=== PATIENT | male | born 1975 | race Caucasian/White ===

== ENCOUNTER 2024-06-20 20:47 | Emergency (ER) | payer MEDICAID, SELFPAY ==
--- NOTE | ~2024-06-20 | CT_ITS ---
EXAMINATION: CT ABDOMEN AND PELVIS WITHOUT CONTRAST CLINICAL INFORMATION: Flank pain. COMPARISON: None available. TECHNIQUE: Multidetector volumetric imaging was performed from the superior aspect of the liver through the pubic symphysis. Sagittal and coronal reformatted images were obtained on the technologist's workstation. This CT examination was performed using dose optimization techniques as appropriate, variously including the following: *Automated exposure control *Adjustment of mA and/or kV according to patient size (this includes techniques or standardized protocols for targeted exams where dose is matched to indication/reason for exam; i.e. extremities or head) *Use of iterative reconstruction technique DLP: 636 mGy-cm FINDINGS: LUNG BASES: The visualized lung bases are unremarkable. LIVER, GALLBLADDER, AND BILIARY TREE: The liver is normal in size, shape, and attenuation. No focal hepatic lesion or biliary ductal dilatation is present. The gallbladder is unremarkable with no evidence of radiopaque gallstones, gallbladder wall thickening, or obvious pericholecystic inflammatory changes. PANCREAS: Unremarkable. SPLEEN: Unremarkable. ADRENAL GLANDS: There is a 1.1 cm low-density left adrenal nodule. KIDNEYS AND URETERS: The kidneys are normal in size, shape, and attenuation. No hydronephrosis, hydroureter, or calculi seen. No perinephric stranding. There is a 2.6 cm cyst mid to upper pole left kidney. There is a 1.9 cm cyst mid pole right kidney. BLADDER: Unremarkable. GASTROINTESTINAL TRACT: The small and large bowel are unremarkable. The appendix is not seen. ABDOMINAL WALL: There is a small umbilical hernia containing fat. LYMPH NODES: Normal. VASCULAR: Unremarkable. PELVIC VISCERA: Unremarkable. OSSEOUS STRUCTURES: Unremarkable. CT/CT abdomen pelvis wo IV con IMPRESSION: No stone or hydronephrosis seen. Bilateral renal cysts. 1.1 cm low-density left adrenal nodule probably representing an adenoma. Fleischner guidelines were followed. Electronically signed by: Ata Waterman MD 06/21/2024 03:41 AM EST
[2024-06-20 20:49] VITALS: BP 132/93; PULSE 100; RESP 15; TEMP 36.3; O2SAT 97; BMI 28.9
[2024-06-20 21:13] LABS: MANUAL DIFF FLAG NO
[2024-06-20 21:14] LABS: Appearance Urine Clear; Basophils Absolute Auto 0.1 X10*3/uL (0.0-0.2); Basophils Percent Auto 0.4 % (0-2); Color Urine Yellow; Eosinophils Percent Auto 0.2 % (0-4); Glucose Urine UA Negative (Negative); Hematocrit 48.7 % (42.0-52.0); Hemoglobin 16.5 g/dl (14.0-18.0); Imm Gran Abs Auto 0.05 X10*3/uL (0.00-0.03); Imm Gran Pct Auto 0.4 % (0.0-0.4); Leukocyte Esterase Urine Negative (Negative); Lymphocytes Absolute Auto 2.7 X10*3/uL (1.2-4.9); Lymphocytes Percent Auto 22.4 % (20-40); Mean Corpuscular HGB Conc 33.9 g/dl (31.0-36.0); Mean Corpuscular Hemoglobin 29.3 pg (27.0-33.0); Mean Corpuscular Volume 86.3 fL (80.0-98.0); Mean Platelet Volume 8.8 fL (9.4-12.4); Monocytes Absolute Auto 1.2 X10*3/uL (0.1-1.2); Monocytes Percent Auto 9.5 % (2-11); Neutrophils Absolute Auto 8.2 x10*3/uL (2.0-8.3); Neutrophils Percent Auto 67.1 % (45-73); Nitrite Urine Negative (Negative); PH 5.5 (5.0-9.0); Platelet Count 375 X10*3/uL (160-400); Red Blood Count 5.64 X10*6/uL (4.60-5.80); Specific Gravity - Urine >= 1.030 (1.005-1.025); UMIC TRIGGER UACC YES; Urine Blood Moderate (2+) (Negative); Urine Ketones Trace mg/dL (Negative); Urine Protein 30 (1+) mg/dL (Neg-Trace); White Blood Count 12.2 X10*3/uL (4.8-10.8)
[2024-06-20 21:17] LABS: Bacteria Urine None Seen (None Seen); Squamous Epithelial Cell Urine 0-2 /HPF (0-2); WBC Urine 0-5 /HPF (0-5)
[2024-06-20 21:29] LABS: Alanine Aminotransferase 70 U/L (0-40); Albumin Level 4.7 g/dL (3.5-5.0); Alkaline Phosphatase 60 U/L (39-117); Anion Gap 13 (12-20); Aspartate Amino Transferase 87 U/L (5-37); Bilirubin Total 0.8 mg/dL (0.0-1.0); Blood Urea Nitrogen 18 mg/dL (9-16); Calcium 10.1 mg/dL (8.4-10.2); Carbon Dioxide 23 mmol/L (22-29); Chloride 109 mmol/L (96-108); Creatinine Clr Calc Pharmacy 86.3; Estimated Glomerular Filt Rate 59; Glucose Random 100 mg/dL (60-115); Potassium 4.1 mmol/L (3.3-5.1); Sodium 141 mmol/L (135-145); Total Protein 7.9 g/dL (6.5-8.0)
[2024-06-21 03:08] VITALS: BP 131/84; PULSE 78; RESP 16; TEMP 36.3; O2SAT 97
--- NOTE | 2024-06-21 04:22 | ED_ITS ---
HPI - Male Genitourinary General Chief complaint: Urogenital-Male Stated complaint: bloody urine Time Seen by Provider: 06/21/24 04:10 Source: patient Mode of arrival: ambulatory Limitations: no limitations History of Present Illness ED Provider: Dr. Veronica Villalobos HPI Narrative: Patient comes to the emergency room complaining of hematuria, dysuria, frequency for 1 day. Patient denies fever or chills. Patient states that earlier today he had bilateral lower flank pain intermittently for the last 3 days. Related Data Previous Rx's ?Medication ?Instructions ?Recorded phenazopyridine 100 mg tablet 100 mg PO TID #6 tabs 06/21/24 Allergies Allergy/AdvReac Type Severity Reaction Status Date / Time No Known Allergies Allergy Mild NOT Verified 06/20/24 20:52 APPLICABLE Review of Systems 2 Review of Systems: Constitutional : No Weight loss, No Fever, No Chills, No Night Sweats, No Fatigue, No Malaise ENT/Mouth : No Hearing loss, No Ear Pain, No Nasal Congestion, No Sinus Pain, No Hoarseness, No sore throat, No Rhinorrhea, No Swallowing Difficulty Eyes: No Eye Pain, No Swelling, No Redness, No Foreign Body, No Discharge, No Vision Changes Cardiovascular : No Chest Pain, No SOB, No Dyspnea on Exertion, No Orthopnea, No Edema, No Palpitations Respiratory : No Cough, No Sputum, No Wheezing, No Smoke Exposure, No Dyspnea Gastrointestinal : No Nausea, No Vomiting, No Diarrhea, No Constipation, No abdominal Pain, No Hematochezia, No Melena Genitourinary : complaining of dysuria, hematuria, frequency and urgency, complaining of bilateral flank pain which self-resolved Musculoskeletal : No joint pain, No Myalgias, No Joint Swelling Skin : No Skin Lesions, No rash Neuro : No Weakness, No Numbness, No Paresthesias, No Loss of Consciousness, No Dizziness, No Headache Psych : No Anxiety/Panic, No Depression, No SI/HI/AH/VH, No Social Issues, Heme/Lymph: No Bruising, No Bleeding,No Lymphadenopathy Endocrine : No Polyuria, No Polydipsia, No Temperature Intolerance PMFSH Social History Social History Smoked in Last 30 Days: Yes Use of substances other than those prescribed or required for medical reasons: No Substance Use Type: Crack/Cocaine Advance Directives: No Advance Directives Information Provided: Yes Do you have a plan to hurt others: No Plan Physical Exam 2 Vital Signs: Vital Signs: Last Vital Signs Temp 97.4 F 06/21/24 03:08 Pulse 78 06/21/24 03:08 Resp 16 06/21/24 03:08 BP 131/84 06/21/24 03:08 Pulse Ox 97 06/21/24 03:08 O2 Del Method Room Air 06/21/24 03:08 BMI result Body Mass Index 28.9 Const: Other: Appearance: Alert. Oriented X3. No acute distress. well-appearing Eyes: Pupils equal, round and reactive to light. ENT: Pharynx normal. Neck: Normal inspection. Neck supple. No lymph nodes noted. No crepitus CVS: Normal heart rate and rhythm. Pulses normal. Normal S1 and S2 Respiratory: No respiratory distress. Breath sounds normal. No Wheezing. No rales Abdomen: Soft and nontender. No rigidity. No distention. Skin: Skin warm and dry. Normal skin color. Normal skin turgor. Extremities: No lower extremity edema. No Lacerations. No Rash Neuro: Oriented X 3. No motor deficit. No sensory deficit. Moving all extremities. No slurred speech. CN 2 through 12 grossly intact Psych: calm, cooperative, normal affect Medical Decision Making Medical Decision Making [facility] Narrative: my interpretation of labs: Patient has a white blood cell count of 12, likely reactive leukocytosis, chemistry within normal limits, urinalysis positive for blood urine positive for blood, negative for nitrites leukocyte esterase and bacteria - CT scan shows bilateral cysts in the kidney , no kidney stones - reviewing patient's urine analysis from the past, patient had trace blood in the urine. - patient was given phenazopyridine in the emergency room. antibiotic is not indicated at this time. - I discussed with the patient that will likely need urology follow-up, possibly a cystoscopy. At this time, patient is not having any pain. Given patient's symptoms, it is possible that patient may have passed a kidney stone Differential Diagnosis Differential Diagnoses: The differential diagnosis associated with the presentation includes ( as above) Lab Data [facility] Lab Attestation statement: I reviewed the patient's lab results. 06/20/24 21:07 06/20/24 21:07 Labs: Lab Results 06/20/24 Range/Units 21:07 WBC 12.2 H (4.8-10.8) X10*3/uL RBC 5.64 (4.60-5.80) X10*6/uL Hgb 16.5 (14.0-18.0) g/dl Hct 48.7 (42.0-52.0) % MCV 86.3 (80.0-98.0) fL MCH 29.3 (27.0-33.0) pg MCHC 33.9 (31.0-36.0) g/dl RDW 13.0 (11.0-16.0) % Plt Count 375 (160-400) X10*3/uL MPV 8.8 L (9.4-12.4) fL Immature Gran % (Auto) 0.4 (0.0-0.4) % Neut % (Auto) 67.1 (45-73) % Lymph % (Auto) 22.4 (20-40) % [place] % (Auto) 9.5 (2-11) % Eos % (Auto) 0.2 (0-4) % Baso % (Auto) 0.4 (0-2) % Lymph # (Auto) 2.7 (1.2-4.9) X10*3/uL [place] # (Auto) 1.2 (0.1-1.2) X10*3/uL Eos # (Auto) 0.0 (0.0-0.4) X10*3/uL Baso # (Auto) 0.1 (0.0-0.2) X10*3/uL Abs Immat Gran (auto) 0.05 H (0.00-0.03) X10*3/uL Absolute Neuts (auto) 8.2 (2.0-8.3) x10*3/uL Absolute Nucleated RBC 0.000 (0.0-0.012) X10*3/uL Nucleated RBC % (auto) 0.0 (0.0-0.2) /100WBC Sodium 141 (135-145) mmol/L Potassium 4.1 (3.3-5.1) mmol/L Chloride 109 H (96-108) mmol/L Carbon Dioxide 23 (22-29) mmol/L Anion Gap 13 (12-20) BUN 18 H (9-16) mg/dL Creatinine 1.31 (0.5-1.4) mg/dL Estim Creat Clear Calc 86.3 Estimated GFR 59 Random Glucose 100 (60-115) mg/dL Calcium 10.1 (8.4-10.2) mg/dL Total Bilirubin 0.8 (0.0-1.0) mg/dL AST 87 H (5-37) U/L ALT 70 H (0-40) U/L Alkaline Phosphatase 60 (39-117) U/L Total Protein 7.9 (6.5-8.0) g/dL Albumin 4.7 (3.5-5.0) g/dL Urine Color Yellow Urine Appearance Clear Urine pH 5.5 (5.0-9.0) Ur Specific [place] >= 1.030 H (1.005-1.025) Urine Protein 30 (1+) H (Neg-Trace) mg/dL Urine Glucose (UA) Negative (Negative) mg/dL Urine Ketones Trace (Negative) mg/dL Urine Blood Moderate (2+) H (Negative) Urine Nitrite Negative (Negative) Ur Leukocyte Esterase Negative (Negative) Urine RBC 6-10 H (0-2) /HPF Urine WBC 0-5 (0-5) /HPF Ur Squamous Epith Cells 0-2 (0-2) /HPF Urine Bacteria None Seen (None Seen) Hyaline Casts 3-5 (0-2) /LPF Independent Interpretation I performed an independent interpretation of an: CT Scan Radiology Impression Discussion of test interpretation with radiology: I have reviewed the radiologist's reading. Radiologist Impression: FINDINGS: LUNG BASES: The visualized lung bases are unremarkable. LIVER, GALLBLADDER, AND BILIARY TREE: The liver is normal in size, shape, and attenuation. No focal hepatic lesion or biliary ductal dilatation is present. The gallbladder is unremarkable with no evidence of radiopaque gallstones, gallbladder wall thickening, or obvious pericholecystic inflammatory changes. PANCREAS: Unremarkable. SPLEEN: Unremarkable. ADRENAL GLANDS: There is a 1.1 cm low-density left adrenal nodule. KIDNEYS AND URETERS: The kidneys are normal in size, shape, and attenuation. No hydronephrosis, hydroureter, or calculi seen. No perinephric stranding. There is a 2.6 cm cyst mid to upper pole left kidney. There is a 1.9 cm cyst mid pole right kidney. BLADDER: Unremarkable. GASTROINTESTINAL TRACT: The small and large bowel are unremarkable. The appendix is not seen. ABDOMINAL WALL: There is a small umbilical hernia containing fat. LYMPH NODES: Normal. VASCULAR: Unremarkable. PELVIC VISCERA: Unremarkable. OSSEOUS STRUCTURES: Unremarkable. CT/CT abdomen pelvis wo IV con IMPRESSION: No stone or hydronephrosis seen. Bilateral renal cysts. 1.1 cm low-density left adrenal nodule probably representing an adenoma. Fleischner guidelines were followed. Discharge Plan Discharge Clinical Impression: Hematuria Patient Disposition: Home, Self-Care Instructions: Hematuria (ED) Additional Instructions: Please follow-up with your primary care physician tomorrow. If you have any worsening or new symptoms, please return to the emergency room or call 911 Prescriptions: New phenazopyridine 100 mg tablet 100 mg PO TID Qty: 6 0RF Referrals: Chino Funes MD [Physician] - 1 week Print Language: [place] Islander
[2024-06-21] MEDS: Phenazopyridine HCL 100 MG TABLET PO (04:35)
[2024-06-21 04:36] VITALS: BP 129/82; PULSE 100; RESP 20; TEMP 36.4; O2SAT 96
[2024-06-21 04:38] VITALS: BP 129/82; PULSE 100; RESP 20; TEMP 36.4; O2SAT 96
== END 2024-06-21 04:41 | disposition home or self-care (01) ==
PROVIDERS: Emergency Provider Emergency Medicine
DX: R31.9 Hematuria, unspecified (principal); R30.0 Dysuria; R35.0 Frequency of micturition; R10.2 Pelvic and perineal pain; Z79.899 Other long term (current) drug therapy
CPT/HCPCS: 36415; 74176; 80053; 81001; 85025; 99284

== ENCOUNTER 2024-08-15 11:00 | Outpatient (REF) | payer MEDICAID, SELFPAY ==
[2024-08-15 16:57] LABS: Urine Cytology See Pathology rpt
--- OUTSIDE RECORDS SUMMARY | 2024-08-15 20:05 | XMS_ITS | Clinical Summary ---
Author Organization 175 [facility] Address [address] [place] [address] Phone Care Team Providers Care Asthma Educator Name Role Phone Jayashree Stevenson NP Primary Care Provider [phone]- [phone] Active Problems Problem Noted Date Diagnosed Date Cervicalgia 06/06/2024 Lumbar radiculopathy 06/06/2024 Encounters Date Type Department Care Team Description 07/06/2024 11:30 AM EST Treatment [facility] [address] [phone] Tabatha, Cari, PT Cervicalgia (Primary Dx); Lumbar radiculopathy 07/04/2024 12:30 PM EST Treatment [facility] [address] [phone] Dante Virgen, PATENT PARALEGAL Cervicalgia (Primary Dx); Lumbar radiculopathy 06/29/2024 12:30 PM EST Treatment [facility] [address] [phone] [place], Cari, PT Cervicalgia (Primary Dx); Lumbar radiculopathy 06/27/2024 12:30 PM EST Treatment [facility] [address] [phone] Tabatha, Cari, PT Cervicalgia (Primary Dx); Lumbar radiculopathy 06/15/2024 12:30 PM EST Treatment [address] [address] Arturo Hinson, PATENT PARALEGAL Cervicalgia (Primary Dx) 06/13/2024 1:30 PM EST Treatment [address] [address] Arturo Hinson, PATENT PARALEGAL Cervicalgia (Primary Dx) 06/08/2024 12:30 PM EST Treatment [address] [address] Arturo Hinson, PATENT PARALEGAL Cervicalgia (Primary Dx) 06/06/2024 12:30 PM EST Treatment [address] [address] Cari Mays, PT Cervicalgia (Primary Dx); Lumbar radiculopathy 06/03/2024 1:00 PM EST Evaluation [address] [address] Cari Mays, PT Cervicalgia (Primary Dx); Lumbar radiculopathy 06/03/2024 Plan of Care Documentation [address] [address] from Last 3 Months Social History Tobacco [...] weeks General No Cari Mays, PT Note: Public Relations Officer Goals 1. Patient will be independent with [...] to no pain or limitation. Care Teams Asthma Educator Relationship Specialty Start Date End Date Jayashree Stevenson NP PCP - General Family Medicine 06/02/24
== END 2024-08-15 11:01 | disposition home or self-care (01) ==
LOC: HO.LNP 11:00
PROVIDERS: Visit Provider Nurse Practitioner Family
DX: R31.0 Gross hematuria (principal)
CPT/HCPCS: 88112

== ENCOUNTER 2024-08-15 11:06 | Outpatient (REF) | payer MEDICAID, SELFPAY ==
--- OUTSIDE RECORDS SUMMARY | 2024-08-15 16:32 | XMS_ITS | Clinical Summary ---
Author Organization [employer] Address 75 [facility] 7t [place] [address] Care Team Providers Care Supervisor Case Loading Name Role Phone Unavailable Primary Care Provider Unavailabl e Active Problems Problem Noted Date Diagnosed Date Opioid dependence 06/23/2019 Immunizations Name Administration Dates Next Due Tdap 11/30/2018 Social History Tobacco Use Types Packs/Day Years Used Date Smoking Tobacco: Never Assessed Sex and Gender Information Value Date Recorded Sex Assigned at Male 05/19/2022 10:20 AM EDT Legal Sex Male 10:20 AM EDT Gender Identity Male 05/19/2022 10:20 AM EDT Sexual Orientation Straight 05/19/2022 10 :20 AM EDT Last Filed Vital Signs Vital Sign Reading Time Taken Comments Blood Pressure 114/72 12/24/2020 12:06 AM EDT Pulse 86 12/24/2020 12:06 AM EDT Temperature - - Respiratory Rate - - Oxygen Saturation - - Inhaled Oxygen Concentration - - Weight 90.1 kg (198 lb 9.6 oz) 12/24/2020 12:06 AM EDT Height 186 cm (6' 1.23 ) 12/24/2020 12:06 AM EDT Body Mass Index 26.04 12/24/2020 12:06 AM EDT Plan of Treatment Health Maintenance Due Date Last Done Comments CT Colonography 1976 Colonoscopy 1976 Colorectal Cancer Screening 1976 Depression Screening 1976 FIT DNA/Cologuard 1976 FIT 1976 FOBT 1976 HIV Screening 1976 SDOH Screening 1976 Sigmoidoscopy 1976 Alcohol/Substance Use Screening 1988 Tobacco Screening 1988 Family Planning (PISQ) 1991 Hepatitis C Screening 1994 Hepatitis B Vaccines (1 of 3 - 19+ 3-dose series) 1995 COVID-19 Vaccine ( - 2023-2 5 season) 2024 Influenza Vaccine (#1) 2024 Lipid Panel 12/24/2025 12/24/2020 Zoster Vaccines (1 of 2) 2026 DTaP/Tdap/Td Vaccines (2 - T d or Tdap) 11/30/2028 11/30/2018 RSV Patients and Pa tients Aged 60 years or older (1 - 1-dose 75+ series) 2051 HIB Vaccines Aged Out No longer eligi ble based on patient's age to complete this topic HPV Vaccines Aged Out No longer eligi ble based on patient's age to complete this topic Hepatitis A Vaccines Aged Out No long er eligible based on patient's age to complete this topic IPV Vaccines Aged Out No longer eligi ble based on patient's age to complete this topic Meningococcal Vaccine Aged Out No kiara lakisha eligible based on patient's age to complete this topic Pneumococcal Vaccine: Pediat rics (0 to 5 Years) and At-Risk Patients (6 to 64 Years) Aged Out No longer eligi ble based on patient's age to complete this topic RSV under 20 months Aged Out No longe r eligible based on patient's age to complete this topic Rotavirus Vaccines Aged Out No longer eligible based on patient's age to complete this topic Procedures Procedure Name Priority Date/Time Associated Diagnosis Comments LIPID PANEL, STANDARD Routine 12/24/2020 9:48 AM EDT from Last 3 Months or Most Recently Relevant to Health Maintenance Results * (ABNORMAL) LIPID PANEL, STANDARD (12/24/2020 9:48 AM EDT) Chol/HDLC Ratio 3.9 <5.0 (calc) [facility] Cholesterol, Total 168 <200 mg/dL [facility] HDL Cholesterol 43 > OR = 40 mg/dL [facility] LDL Cholesterol 99 mg/dL (calc) [facility] Comment: Reference range: <100 ?? Desirable range <100 mg/dL for primary prevention; ?? <70 mg/dL for patients with CHD or diabetic patients ?? with > or = 2 CHD risk factors. ?? LDL-C is now calculated using the Esteban-Jenkins ?? calculation, which is a validated novel method providing ?? better accuracy than the Friedewald equation in the ?? estimation of LDL-C. ?? Esteban GUTHRIE et al. CORKY. 2013;310(19): 9296-2996 ?? (http://XGraph.MeriTaleem/faq/MRV571) Non-HDL Cholesterol 125 <130 mg/dL (calc) [facility] Comment: For patients with diabetes plus 1 major ASCVD risk ?? factor, treating to a non-HDL-C goal of <100 mg/dL ?? (LDL-C of <70 mg/dL) is considered a therapeutic ?? option. Triglycerides 154(H) <150 mg/dL [facility] 12/24/2020 9:48 AM EDT us Jf Salamanca MD LAB BLOOD ORDERABLES Final R esult [facility] [address] from Last 3 Months or Most Recently Relevant to Health Maintenance Insurance [facility] C3
--- OUTSIDE RECORDS SUMMARY | 2024-08-15 16:32 | XMS_ITS | Clinical Summary ---
Author Organization 175 [facility] Address [address] [place] [address] Phone Care Team Providers Care E Merchant Name Role Phone Jayashree Stevenson NP Primary Care Provider [phone]- [phone] Active Problems Problem Noted Date Diagnosed Date Cervicalgia 06/06/2024 Lumbar radiculopathy 06/06/2024 Encounters Date Type Department Care Team Description 07/06/2024 11:30 AM EST Treatment [facility] [address] [phone] Tabatha, Cari, PT Cervicalgia (Primary Dx); Lumbar radiculopathy 07/04/2024 12:30 PM EST Treatment [facility] [address] [phone] Dante Virgen, TRACK RIDER Cervicalgia (Primary Dx); Lumbar radiculopathy 06/29/2024 12:30 PM EST Treatment [facility] [address] [phone] [place], Cari, PT Cervicalgia (Primary Dx); Lumbar radiculopathy 06/27/2024 12:30 PM EST Treatment [facility] [address] [phone] Tabatha, Cari, PT Cervicalgia (Primary Dx); Lumbar radiculopathy 06/15/2024 12:30 PM EST Treatment [address] [address] Arturo Hinson, TRACK RIDER Cervicalgia (Primary Dx) 06/13/2024 1:30 PM EST Treatment [address] [address] Arturo Hinson, TRACK RIDER Cervicalgia (Primary Dx) 06/08/2024 12:30 PM EST Treatment [address] [address] Arturo Hinson, TRACK RIDER Cervicalgia (Primary Dx) 06/06/2024 12:30 PM EST Treatment [address] [address] Cari Mays, PT Cervicalgia (Primary Dx); Lumbar radiculopathy 06/03/2024 1:00 PM EST Evaluation [address] [address] Cari Mays, PT Cervicalgia (Primary Dx); Lumbar radiculopathy 06/03/2024 Plan of Care Documentation [address] [address] from Last 3 Months Social History Tobacco [...] weeks General No Cari Mays, PT Note: Household Appliance Assembler Goals 1. Patient will be independent with [...] to no pain or limitation. Care Teams E Merchant Relationship Specialty Start Date End Date Jayashree Stevenson NP PCP - General Family Medicine 06/02/24
--- OUTSIDE RECORDS SUMMARY | 2024-08-15 16:32 | XMS_ITS | Encounter Summary ---
Author Organization [employer] Address 75 [facility] 7t [place] [address] Care Team Providers Care Restaurant Worker Name Role Phone Belem Howell Primary Care Provider [phone] Encounter Details Date Type Department Care Team (Late st Contact Info) Description 08/20/2023 Telephone [facility] [address] [place], [place] [phone] Belem Howell ANP [address] [place], [place] [phone] Social History Tobacco Use Types Packs/Day Years Used Date Smoking Tobacco: Never Assessed Sex and Gender Information Value Date Recorded Sex Assigned at Male 05/19/2022 10:20 AM EDT Legal Sex Male 10:20 AM EDT Gender Identity Male 05/19/2022 10:20 AM EDT Sexual Orientation Straight 05/19/2022 10 :20 AM EDT documented as of this encounter Miscellaneous Notes * Telephone Encounter - Vickie Lindquist RN - 08/20/2023 1:55 PM EST Received a voicemail message from [employer] requesting the forms for mental impairment and ability to work to be filled out as patient had a disability hearing on 07/31/23. I informed the medical records person that we received the forms on June 19, 2023 but we were unable to contact the patient via telephone to schedule a visit with his new provider in order to do the forms for himas his phone was not in service. We also sent a letter to the patient asking him to call [facility] med records so we could discuss paperwork with him but he never responded. Patient has not been to an appointment since 12/24/20 and he no showed to appt 09/23/22. We cannot complete paperwork if the patient has not been seen by his PCP in over 2 years. Paperwork will be scanned to his chart uncompleted. documented in this encounter Plan of Treatment Not on file documented as of this encounter Visit Diagnoses Not on filedocumented in this encounter Care Teams Restaurant Worker Relationship Specialty Start Date End Date Belem Howell ANP [address] [place] [address] PCP - General Family Medicine 04/09/22 09/03/23 documented as of this encounter
== END 2024-08-15 11:07 | disposition home or self-care (01) ==
LOC: HO.LNP 11:06
PROVIDERS: PCP Nurse Practitioner; Visit Provider Nurse Practitioner Family
DX: R31.0 Gross hematuria (principal); F17.200 Nicotine dependence, unspecified, uncomplicated
CPT/HCPCS: 81003; 99212

== ENCOUNTER 2024-08-15 11:06 | Outpatient (AMB) | payer MEDICAID, SELFPAY ==
--- NOTE | 2024-08-15 11:17 | A.OFFVIS_ITS ---
Intake Visit Reasons: microscopic hematuria Intake Note: New Patient presents for initial visit for microscopic hematuria Urology Medications: none Blood Thinner: none * smoker; yes: 20+ years [employer] Required: No Accompanied by: Self / Same As Patient Allergies No Known Allergies Allergy (Mild, Verified 08/15/24 11:47) NOT APPLICABLE Medication List - Last Reconciled 08/15/24 by BRYON Garnett No Known Home Meds HPI Comments Details: Eliezer is a very pleasant 49-year-old male patient of Dr. Stevenson. He presents to the office today as a new patient for gross hematuria in the setting of nicotine dependence. In discussion with the patient today reports having seeked emergency room care services approximately 6 weeks ago for hematuria, dysuria, bilateral flank pain and urinary frequency he had been experiencing at which time a noncontrasted CT was ordered for further assessment evaluation. These results reviewed with the patient today. 07/12 the kidneys are normal in size, shape, and attenuation. No hydronephrosis or renal calculi seen. No perinephric stranding. There are benign appearing bilateral renal cysts. The bladder is unremarkable. He reports having had 1 other episode of gross hematuria since his ER visit. In office urinalysis results reviewed with the patient today 2+ microscopic hematuria. He does report a longstanding history of nicotine dependence for over 20 years. He reports smoking approximately 1 pack per day however most recently is trying to limit in quit nicotine dependence therefore 1 pack is lasting him 2 days. He reports flank pain and lower urinary tract symptoms he had been experiencing has since subsided. We discussed at length potential causes of gross hematuria as well as further workup to include contrasted CT study as well as in office cystoscopy. All questions were answered. He currently denies urinary urgency, urinary frequency, incontinence, nocturia, dysuria, foul smelling urine, changes to urinary stream, flank pain, fever, and or chills. He is happy with his current voiding parameters. [facility] Social History Substance Use Type: Crack/Cocaine Review of Systems Const All systems reviewed & are unremarkable except as noted in HPI and below Physical Exam Const General: cooperative, healthy appearing, comfortable, no acute distress, well developed, alert and awake Orientation/consciousness: patient oriented x3 Limitations: no limitations HEENT Head: Yes normal to inspection, Yes normocephalic and Yes atraumatic Ears: hearing grossly normal bilaterally Eyes General: appearance normal, both eyes and all related structures Neck Neck: Yes normal visual inspection and Yes trachea midline Chest Chest palpation & inspection: normal inspection of the chest Resp Effort & Inspection: normal respiratory effort and able to speak in complete sentences Cardio Rate: regular rate GI Inspection: Yes normal to inspection General: Yes no CVA tenderness Back/Spine/Pelvis Back: no CVA tenderness Skin General skin exam: no rashes or lesions noted Neuro General: patient oriented x3 Extrem General: Yes normal to inspection Psych Appearance: grossly normal and well kempt Mental Status: mental status grossly normal Speech and movement: Normal speech and movement present and Clear speech present Affect: normal affect Attitude: cooperative Thought process: Normal thought process present Thought content: Normal thought content present Insight: Fair insight present (Psych) Judgement: Fair judgement present (Psych) Results AMB Urinalysis, Automated UA Leukoctes 0 Sonny/uL Last Edit by [employer] on 08/15/24 11:38 UA Nitrite Last Edit by [employer] on 08/15/24 11:38 UA Urobilinogen 0.2 mg/dL Last Edit by [employer] on 08/15/24 11:38 UA Protein 15 mg/dL Last Edit by [employer] on 08/15/24 11:38 UA pH 6.0 Last Edit by [employer] on 08/15/24 11:38 UA Blood 25 Harry/uL Last Edit by [employer] on 08/15/24 11:38 UA Specific Lewis 1.030 Last Edit by [employer] on 08/15/24 11:38 UA Ketone Last Edit by [employer] on 08/15/24 11:38 UA Bilirubin 0 mg/dL Last Edit by [employer] on 08/15/24 11:38 UA Glucose 0 mg/dL Last Edit by [employer] on 01/27/25 11:38 Results Reviewed Results Reviewed: Date of Service: 06/20/24 Procedure(s): CT abdomen pelvis wo IV con FINDINGS: LUNG BASES: The visualized lung bases are unremarkable. LIVER, GALLBLADDER, AND BILIARY TREE: The liver is normal in size, shape, and attenuation. No focal hepatic lesion or biliary ductal dilatation is present. The gallbladder is unremarkable with no evidence of radiopaque gallstones, gallbladder wall thickening, or obvious pericholecystic inflammatory changes. PANCREAS: Unremarkable. SPLEEN: Unremarkable. ADRENAL GLANDS: There is a 1.1 cm low-density left adrenal nodule. KIDNEYS AND URETERS: The kidneys are normal in size, shape, and attenuation. No hydronephrosis, hydroureter, or calculi seen. No perinephric stranding. There is a 2.6 cm cyst mid to upper pole left kidney. There is a 1.9 cm cyst mid pole right kidney. BLADDER: Unremarkable. GASTROINTESTINAL TRACT: The small and large bowel are unremarkable. The appendix is not seen. ABDOMINAL WALL: There is a small umbilical hernia containing fat. LYMPH NODES: Normal. VASCULAR: Unremarkable. PELVIC VISCERA: Unremarkable. OSSEOUS STRUCTURES: Unremarkable. IMPRESSION: No stone or hydronephrosis seen. Bilateral renal cysts. 1.1 cm low-density left adrenal nodule probably representing an adenoma. Assessment & Plan Assessment & Plan (1) Gross hematuria: Code(s): R31.0 - Gross hematuria Category: Medical (2) Nicotine dependence: Code(s): F17.200 - Nicotine dependence, unspecified, uncomplicated Category: Medical Plan In office urinalysis results reviewed with the patient today; as noted above; will send for urine cytology. We discussed at length potential causes of gross hematuria as well as further workup to include contrasted CT study as well as in office cystoscopy; risks and benefits of these interventions were discussed. Patient currently denies any bothersome urinary issues or concerns. He reports be happy with current voiding parameters. Will obtain CT urogram. BUN and creatinine ordered for imaging. We discussed importance of limiting/quitting nicotine dependence for overall health and well-being Follow-up in office cystoscopy with imaging and labs to be completed prior; or sooner with any issues, concerns, and or questions. Orders: Orders Urine Cytology Today Z13.9 - Encounter for screening, unspecified CT urogram Today F17.200 - Nicotine dependence, unspecified, uncomplicated, R31.0 - Gross hematuria Creatinine Today F17.200 - Nicotine dependence, unspecified, uncomplicated, R31.0 - Gross hematuria AMB Urinalysis Automated Today Z13.9 - Encounter for screening, unspecified Blood Urea Nitrogen Today F17.200 - Nicotine dependence, unspecified, uncomplicated, R31.0 - Gross hematuria Medications: Discontinued phenazopyridine Discontinued Reason: Patient no longer taking 100 mg PO TID 6 tabs 0RF Patient Instructions: The patient had an opportunity to ask questions regarding the treatment plan. All questions were answered. Physical exam, labs, and imaging were discussed and reviewed in detail. As well as risks, benefits, and discussion of treatment choices. No major barriers to understanding were identified. The patient expressed understanding and agreement with the above treatment plan. The patient was made aware they should contact our office by phone for worsening of their current condition, the appearance of new symptoms, or with any questions or concerns. Compliance is encouraged with any medications and follow up testing that is ordered. It is a privilege to be allowed the opportunity to participate in? your urological care.? Again, if you have any questions or concerns If you have any questions or concerns please do not hesitate to contact me. The office is [phone]. This note is constructed using voice recognition software. While every effort has been made to ensure accuracy fox farmer errors may have been included. Yours sincerely, BRYON Garnett Coding Level of Care Code New Pt Level 3 (79144) Diagnoses Gross hematuria R31.0 Nicotine dependence F17.200
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
--- OUTSIDE RECORDS SUMMARY | 2024-08-15 16:03 | XMS_ITS | Patient Health Record ---
Author Organization [facility] Address [address], [place] [id number] Care Team Providers Care Market Research Assistant Name Role Phone Rupal Galaviz Primary Care Provider [phone] Dora Rebolledo Unavailable [phone] [facility], Nursing Unavailable [phone] Allergies No Known Allergies Results Component Value Reference Range Notes FECAL GLOBIN BY IMMUNOCHEMIS TRY Reviewed date:05/20/2024 09:55:51 AM Interpretation:Negative Performing Lab:NL2, [facility] [address] Anthony Manzanares Notes/Report: FASTING: UNKNOWN FECAL GLOBIN BY IMMUNOCHEMISTRY SEE NOTE FECAL GLOBIN BY IMMUNOCHEMISTRY Micro Number: [id number] Test Status: Final Specimen Source: Insu () fobt test card Specimen Quality: Adequate Fecal Globin: Not Detected CBC Reviewed date:05/10/2024 09:20:26 AM Interpretation:Normal Performing Lab: Notes/Report: WBC 7.5 4.8-10.8 x10-3/uL RBC 5.4 4.5-5.5 x10-6/uL HEMOGLOBIN 15.8 13.5-17.5 g/dL HEMATOCRIT 48.9 42-54 % MCV 90.4 79-98 fL MCH 29.2 27-32 pg MCHC 32.3 32-37 g/dL RDW 12.8 11-15 % PLT COUNT 364 130-400 x10-3/uL MEAN PLATELET VOLUME 9.9 7-11 fL NRBC % AUTO 0.0 <1 % NRBC # AUTO 0.00 <0.1 x10-3/uL COMPREHENSIVE METABOLIC PANE L Reviewed date:05/10/2024 09:20:17 AM Interpretation:Abnormal Performing Lab: Notes/Report: Original Ordering Provider: RUPAL GALAVIZ APRN GLUCOSE 99 70-100 mg/dL Reference range applicable to fasting specimens only BUN 10 5-25 mg/dL CREAT 0.92 0.7-1.3 mg/dL GLOMERULAR FILTRATION RATE 103 >60 This eGFR result was calculated using the CKD-EPI 2020 Creatinine Equation CALCIUM 9.9 8.5-10.5 mg/dL ALBUMIN 3.9 3.2-5.0 G/dL SGOT 29 10-42 U/L SGPT 62 10-60 U/L SODIUM 140 135-145 mEq/L POTASSIUM 4.8 3.5-5.5 mmol/L CHLORIDE 109 96-110 mmol/L CO2 30 21-32 mmol/L ANION GAP 1 3-11 TOTAL PROTEIN 7.2 6.0-8.0 G/dL BILI,TOTAL 0.5 0.0-1.4 mg/dL ALK PHOS 62 42-121 U/L GLYCOHEMOGLOBIN PROFILE Reviewed date:05/10/2024 09:20:42 AM Interpretation:Normal Performing Lab: Notes/Report: [employer], a member of [address] [address] Embossing Tool Setter - Kelly Vazquez MD GLYCATED HEMOGLOBIN A1C 5.6 <6.5 % ESTIMATED AVERAGE GLUCOSE 114 HIV 1 AND 2 ANTIBODY SCREEN Reviewed date:05/10/2024 09:20:35 AM Interpretation:Negative Performing Lab: Notes/Report: HIV 1 AND 2 SCREEN NEGATIVE NEGATIVE This assay is a 4th generation assay allowing for earlier detection of HIV infection by detecting the presence of the HIV-1 p24 antigen as well as the traditional antibodies to HIV type 1 (including group O) and type 2. Use of a 4th generation assay is the current CDC recommendation for HIV screening. LIPID PROFILE Reviewed date:05/10/2024 09:31:56 AM Interpretation:5.5 % 10-yr CV risk (borderline risk) Performing Lab: Notes/Report: CHOLESTEROL 208 0-200 mg/dL TRIGLYCERIDES 415 0-150 mg/dL HDL CHOLESTEROL 32 >40 mg/dL LDL CALCULATED 93 0-100 mg/dL TC-HDLC RATIO 6.5 0-4.4 mg/dL TREPONEMAL AB Reviewed date:05/10/2024 09:20:58 AM Interpretation:Negative Performing Lab: Notes/Report: TREPONEMAL AB NEGATIVE NEGATIVE TSH CASCADE Reviewed date:05/10/2024 09:20:51 AM Interpretation:Low Performing Lab: Notes/Report: TSH CASCADE 0.34 0.40-4.00 uIU/ml QUANTIFERON(R)-TB GOLD PLUS, 1 TUBE Reviewed date:05/13/2024 10:50:15 AM Interpretation:Negative Performing Lab:NL2, [facility] [employer] [address] [place], [place] [id number] Anthony Norriselena Notes/Report: NON-FASTING QUANTIFERON(R)-TB GOLD PLUS, 1 TUBE NEGATIVE NEGATIVE Negative test result. M. tuberculosis complex infection unlikely. NIL 0.02 MITOGEN-NIL 8.50 TB1-NIL 0.00 TB2-NIL 0.00 The Nil tube value reflects the background interferon gamma immune response of the patient's blood sample. This value has been subtracted from the patient's displayed TB and Mitogen results. Lower than expected results with the Mitogen tube prevent false-negative Quantiferon readings by detecting a patient with a potential immune suppressive condition and/or suboptimal pre-analytical specimen handling. The TB1 Antigen tube is coated with the M. tuberculosis-specific antigens designed to elicit responses from TB antigen primed CD4+ helper T-lymphocytes. The TB2 Antigen tube is coated with the M. tuberculosis-specific antigens designed to elicit responses from TB antigen primed CD4+ helper and CD8+ cytotoxic T-lymphocytes. For additional information, please refer to https://education.[employer]faq/GMR767 (This link is being provided for informational/ educational purposes only.) FREE T3 Reviewed date:05/10/2024 09:19:17 AM Interpretation:Normal Performing Lab: Notes/Report: FREE T3 340 230-420 pg/dl FREE T4 CASCADE Reviewed date:05/10/2024 09:18:11 AM Interpretation:Normal Performing Lab: Notes/Report: FREE T4 CASCADE 1.22 0.70-1.80 ng/dL HEPATITIS A ANTIBODY IGM Reviewed date:05/10/2024 09:18:04 AM Interpretation:Negative Performing Lab: Notes/Report: HEPATITIS A ANTIBODY IGM NEGATIVE NEGATIVE Over the counter supplements containing high doses of biotin may interfere with this assay. If interference is suspected, patients shoud be retested after refraining from biotin supplements for 72 hours. HEPATITIS A B C PROFILE Reviewed date:05/10/2024 09:18:25 AM Interpretation:+ Hep A & Hep B immunity Performing Lab: Notes/Report: HEPATITIS B SURFACE ANTIBODY POSITIVE NEGATIVE HEPATITIS B SURFACE ANTIGEN NEGATIVE NEGATIVE Over the counter supplements containing high doses of biotin may interfere with this assay. If interference is suspected, patients shoud be retested after refraining from biotin supplements for 72 hours. HEPATITIS C VIRUS DIAGNOSTIC NEGATIVE NEGATIVE HEPATITIS B CORE ANTIBODY NEGATIVE NEGATIVE HEPATITIS A ANTIBODY TOTAL POSITIVE NEGATIVE Over the counter supplements containing high doses of biotin may interfere with this assay. If interference is suspected, patients shoud be retested after refraining from biotin supplements for 72 hours. Reason For Referral Reason Routine dental care Diagnosis 1 Low income (Z59.6) Referral Organization [facility] Referring Provider First Name Nursing Referring Provider Last Name [facility] Referring Provider Speciality Family Pra ctice Referred Organization [facility] Referred Address [address] [place] [id number], Referred Provider Specialty Dental Gener al Practice Referral Priority Routine Reason evaluate and treat f or cervicalgia and lumbar pain Diagnosis 1 Radiculopathy, lumba r region (M54.16) Diagnosis 2 Cervicalgia (M54.2) Referral Organization [facility] Referring Provider First Name Rupal Referring Provider Last Name Elva Referring Provider Speciality Nurse Prac titioner Referred Provider Geraldine geophysical data technician krupa Referred Provider Specialty Physiotherap y General Notes Antonella Pardo 07:59:30 AM > notes faxed to [phone], Antonella Pardo 06/01/2024 10:27:38 AM > appt scheduled for 06/03 @1:00pm, Antonella Pardo 06/30/2024 09:56:08 AM >requested notesCorinna Paris 07/07/2024 09:20:05 AM > pt. attended, notes to scan Referral Priority Routine Referral Appointment Date 06/03/2024 Reason [facility], [address], [facility] [address] P: [phone] F: [phone] evaluate for Bilateral renal cyst and left adrenal nodule probably representing adenoma seen in abd-pelvis CT during ED visit for abd/flank pain Diagnosis 1 Cyst of kidney, acqu ired (N28.1) Referral Organization [facility] Referring Provider First Name Rupal Referring Provider Last Name Elva Referring Provider Speciality Nurse Silvana lutz [facility]erred Provider Specialty Nephrology General Notes sent page 10 of [place] ED visit Corinna escobar Paris 06/24/2024 01:13:08 PM > Faxed to R&T associatesCorinna Paris 06/28/2024 11:49:06 AM > Pt. scheduled 07/14/24 @2:[address] Mart located at [address] [place] [address] Dr [facility] 07/06/2024 01:33:59 PM > pt is aware of appt, Antonella Pardo 07/26/2024 11:18:35 AM > requested notes from [facility] MR-Donna Monica 07/28/2024 09:07:32 AM >Pt no showed for appt 07/14. Referral Priority Routine Referral Appointment Date 07/14/2024 Medications Medication SIG (Take, Route, Frequency, Duration) [...] once a day for 30 days Not-Taking Social History Tobacco Use: Social History Observation Description Date Details (start date - stop date) Current Smoker NA - NA Tobacco Use Assessment MU Question Answer Notes What is your current smoking status? current smo ker How often do you smoke? every day How many cigarettes a day do you smoke? 6-10 How soon after you wake up d o you smoke your first cigarette? 6-30 minutes Are you interested in quitting? thinking about q uitting Patient counseled on the herman banueloss of tobacco use and advised to quit: 04/08/2024 Problems Problem Type SNOMED Code ICD Code Onset Dates Problem Status W/U Status Risk Notes Problem Thyrotoxicosis (31705830) Thyrotoxicosis, unspecified without thyrotoxic crisis or storm (E05.90) Active confirmed Problem Overweight (309601376) Overweight (E66.3) Active confirmed Problem Mixed hyperlipidemia (361856759) Mixed hyperlipidemia (E78.2) Active confirmed Problem Lumbar radiculopathy (264168745) Radiculopathy, lumbar region (M54.16) Active confirmed Problem Cervicalgia (30847609) Cervicalgia (M54.2) Active confirmed Problem Low income (010186640) Low income (Z59.6) Active confirmed Problem Nondependent opioid abuse in remission (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) Opioid abuse, in remission (F11.11) Active confirmed Problem BMI 25-29 - overweight (730976802) Body mass index [BMI] 29.0-29.9, adult (Z68.29) Active confirmed Problem Sheltered homelessness (795770946779796) Sheltered homelessness (Z59.01) Active confirmed Problem Anxiety disorder (960603710) Anxiety disorder, unspecified (F41.9) Inactive confirmed Problem Psychophysiologic insomnia (239246648) Psychophysiologic insomnia (F51.04) Inactive confirmed Problem Homelessness (21042968) Homelessness (Z59.0) Inactive confirmed Vital Signs Temperature 97.5 degrees Fahrenheit 05/09/2024 Blood pressure diastolic 87 05/09/2024 Oximetry 98 05/09/2024 Height 72 in 05/23/2024 Blood pressure systolic 131 05/09/2024 Weight 220.2 lbs 05/09/2024 BMI 29.86 kg/m2 05/09/2024 Encounters Encounter Location Date Provider Diagnosis [address] [id number] 04/08/2024 Nursing [facility] Encounter for screening for COVID-[address] [id number] 05/09/2024 Rupal Galaviz Encounter for general adult medical examination with abnormal findings Z00.01 ; Encounter for screening for infectious and parasitic diseases, unspecified Z11.9 ; Encounter for screening for cardiovascular disorders Z13.6 ; Encounter for screening for respiratory tuberculosis Z11.1 ; Encounter for screening for malignant neoplasm of colon Z12.11 ; Immunization not carried out because of patient refusal Z28.21 ; Body mass index [BMI] 29.0-29.9, adult Z68.29 ; Opioid abuse, in remission F11.11 ; Overweight E66.3 ; Radiculopathy, lumbar region M54.16 ; Cervicalgia M54.2 and Sheltered homelessness Z59.01 [facility] [address] [place] [address] [facility] [place] [phone] 05/23/2024 Edosbaldo Galaviz Person consulting for explanation of examination or test findings Z71.2 ; Thyrotoxicosis, unspecified without thyrotoxic crisis or storm E05.90 ; Encounter for screening for COVID-19 Z11.52 and Mixed hyperlipidemia E78.2 [facility] [address] [place] [phone] 06/21/2024 Rupal Galaviz Cyst of kidney, acquired N28.1 Assessments Encounter Date Diagnosis (ICD Code) Assessment Notes Treat ment Notes Treatment Clinical Notes 04/08/2024 Encounter for screening for COVID-19 (ICD-10 - Z11.52) Covid verbal screening negative. 05/09/2024 Encounter for general adult medical examination with abnormal findings (ICD-10 - Z00.01) Annual PE performed.General recommendation for good health made: brush/floss your teeth 2x per day. Eat a healthy diet and obtain 30 minutes of aerobic exercise 5/7 days per week.. Maintain high in take of water and avoid soda and energy drinks. Get 8 hours of sleep every night. 05/09/2024 Encounter for screening for infectious and parasitic diseases, unspecified (ICD-10 - Z11.9) Covid screening is negative. Discussed in detail with patient how to practice social distancing by avoiding public spaces and crowds now, wearing a mask in public to keep nose and mouth covered, and washing hands frequently especially before eating and after using the bathroom. Return to clinic if you develop any symtpoms of concern to be rescreened or go to the emergency room if you are having concerning symptoms for COVID-19. Screen for STI. TB and hepatitis 05/23/2024 Thyrotoxicosis, unspecified without thyrotoxic crisis or storm (ICD-10 - E05.90) denies symptoms 05/23/2024 Person consulting for explanation of examination or test findings (ICD-10 - Z71.2) Reviewed results of recent diagnostic testing with client. Future plan of action discussed with from results of diagnostic testing. 06/21/2024 Cyst of kidney, acquired (ICD-10 - N28.1) 05/09/2024 Encounter for screening for cardiovascular disorders (ICD-10 - Z13.6) Screen for CV disorders + CV risk factors: + smoker,elevated BMI 05/23/2024 Encounter for screening for COVID-19 (ICD-10 - Z11.52) Covid verbal screening negative. 05/09/2024 Encounter for screening for respiratory tuberculosis (ICD-10 - Z11.1) TB testing is completed on patients every 6 months with housing instability and those using substances. Quantiferon gold will be drawn. 05/23/2024 Mixed hyperlipidemia (ICD-10 - E78.2) Engaged discussion on maintaining healthy lifestyle: healthy diet low on fats and simple carbohydrates, and regular physical exercise of at least 30 minutes daily 05/09/2024 Encounter for screening for malignant neoplasm of colon (ICD-10 - Z12.11) Insure FIT testing agreed upon to screen for occult blood from colorectal disease. Instructed in use. Patient collection kit labeled and given to patient; questions regarding how to collect samples answered. Reminded to place date on each sample and mail back the card with completed requisition. 05/09/2024 Immunization not carried out because of patient refusal (ICD-10 - Z28.21) declines Flu vaccine. Aware of risks 05/09/2024 Body mass index [BMI] 29.0-29.9, adult (ICD-10 - Z68.29) Engaged discussion on maintaining healthy lifestyle: healthy diet low on fats and simple carbohydrates, and regular physical exercise of at least 30 minutes daily 05/09/2024 Opioid abuse, in remission (ICD-10 - F11.11) remains on remission 05/09/2024 Overweight (ICD-10 - E66.3) Engaged discussion on maintaining healthy lifestyle: healthy diet low on fats and simple carbohydrates, and regular physical exercise of at least 30 minutes daily 05/09/2024 Radiculopathy, lumbar region (ICD-10 - M54.16) will refer to PT 05/09/2024 Cervicalgia (ICD-10 - M54.2) Will refer to PT 05/09/2024 Sheltered homelessness (ICD-10 - Z59.01) Stays at partner's house 04/08/2024 Other pt phone intake to reestablish medical care at [facility], pt is not interested in receiving MH services and he want Dental care from [facility]. pt is renting an apartment with his partner at [facility]. pt is working but he need to be seen by a provider for a CPE. pt didnt address any urgent medical needs a the moment. Time spent in visit: 40 minutes 05/09/2024 Other Labs drawn per protocol, no difficulties, sent to lab, pt to RTC for f/u 05/23/2024 Other Time spent in v isit: 8 minutes Plan Of Treatment Pending Test Test Name Order Date HEPATITIS A,B,C PROFILE 05/09/2024 Next Appt Details Provider Name:Nursing [facility], 11/21/2024 09:00:00 AM, [address] [facility], [place], [place], [phone], Insurance Providers Payer Name Payer Address Payer Phone Subscriber Number Group Number Insured Name Patient Relationship to Insured Coverage Start Date Coverage End Date [place] C3 [address] [place], [place] [id number] Eliezer Schulte Self - patient is the insured 0 Medications Administered Medication Instructions Date of Administration Dosage Notes Naltrexone extended-release injectable suspension 05/22/2020 380 mg [facility] [id number] Medical (General) History Medical History History ICD Code Opiate dependence Depression Anger Issues Surgical History Surgery Date(Month/Year) Back surgery - Buldging disc 1998 Hospitalization History Reason Date(Month/Year) [facility] - Detox 03/2020
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
--- OUTSIDE RECORDS SUMMARY | 2024-08-15 16:03 | XMS_ITS ---
Author Organization [facility] Address [address], [place] [address] Care Team Providers Care Customer Operations Associate Name Role Phone Jayashree Stevenson Primary Care Provider Dora Rebolledo Unavailable [phone] Reason For Referral Reason Renal and Trans[facility], [address] [place] [address] [address] P: [phone] F: [phone] evaluate for Bilateral renal cyst and left adrenal nodule probably representing adenoma seen in abd-pelvis CT during ED visit for abd/flank pain Diagnosis 1 Cyst of kidney, acqu ired (N28.1) Referral Organization [facility] Referring Provider First Name Jayashree Referring Provider Last Name Elva Referring Provider Speciality Nurse Prac titioner [facility] Specialty Nephrology General Notes sent page 10 of [facility] visit notesCorinna Paris 06/24/2024 01:13:08 PM > Faxed to R&T associatesCorinna Paris 06/28/2024 11:49:06 AM > Pt. scheduled 07/14/24 @2:[address] Mart located at [address] [place] [address] Chi Hoffman MA, Rivera, Aracelis 07/06/2024 01:33:59 PM > pt is aware of apptEdvin Aracelis 07/26/2024 11:18:35 AM > [facility] MR-Donna Monica 07/28/2024 09:07:32 AM >Pt no showed for appt 07/14. Referral Priority Routine Referral Appointment Date 07/14/2024 REASON FOR VISIT appt Encounters Encounter Location Date Provider Diagnosis [facility] [address] [place] [phone] 06/21/2024 Eddieliza Hongionan Cyst of kidney, acquired N28.1 Assessments Encounter Date Diagnosis (ICD Code) Assessment Notes Treatment Notes Treatment Clinical Notes 06/21/2024 Cyst of kidney, acquired (ICD-10 - N28.1) Plan Of Treatment Referrals Referral Date Details 06/24/2024 06/24/2024, [facility], [address] [address] P: [phone] F: [phone] evaluate for Bilateral renal cyst and left adrenal nodule probably representing adenoma seen in abd-pelvis CT during ED visit for abd/flank pain, [facility] [place] Next Appt Details Provider Name:Nursing [facility], 11/21/2024 09:00:00 AM, [address] [place] [address], [phone], Progress Notes * Eliezer SCHULTEDOB: [birth year] (48 yo M)Acc No.[id number]:06/21/2024 Patient:?Eliezer SCHULTE :1975???Age:48 Y???Sex:Male Address:[address] [place] [address], [id number] Subjective: * Chief Complaints: * ???Appt * Medical History:? * Surgical History:? * Hospitalization/Major Diagno stic Procedure:? * Medications:? Objective: * Vitals:? * Physical Examination:? Assessment: * Assessment: 1.?Cyst of kidney, acquired - N28.1 (Primary)??? Plan: * Treatment: * Procedure Codes:? * true * Date:? Generated for Nicole licea/Ana/eTransmitting on:?08/15/2024 04:03 PM EST Consultation Request Notes Referral Date Referring Provider Referred Provider Not brando 06/24/2024 Casionan, Eddieliza [facility] [place], [address] [address], [facility] [address] P: [phone] F: [phone] evaluate for Bilateral renal cyst and left adrenal nodule probably representing adenoma seen in abd-pelvis CT during ED visit for abd/flank pain
--- OUTSIDE RECORDS SUMMARY | 2024-08-15 16:03 | XMS_ITS | Clinical Summary ---
Author Organization 175 [facility] Address 175 [place] [address] Phone Care Team Providers Care Loftsman/Woman Name Role Phone Jayashree Stevenson NP Primary Care Provider [phone]- [phone] Active Problems Problem Noted Date Diagnosed Date Cervicalgia 06/06/2024 Lumbar radiculopathy 06/06/2024 Encounters Date Type Department Care Team Description 07/06/2024 11:30 AM EST Treatment [facility] [address] [phone] Tabatha, Cari, PT Cervicalgia (Primary Dx); Lumbar radiculopathy 07/04/2024 12:30 PM EST Treatment [facility] [address] [phone] Dante Virgen, SPRAYER INSECTICIDE Cervicalgia (Primary Dx); Lumbar radiculopathy 06/29/2024 12:30 PM EST Treatment [facility] [address] [phone] [place], Cari, PT Cervicalgia (Primary Dx); Lumbar radiculopathy 06/27/2024 12:30 PM EST Treatment [facility] [address] [phone] Tabatha, Cari, PT Cervicalgia (Primary Dx); Lumbar radiculopathy 06/15/2024 12:30 PM EST Treatment [address] [address] Arturo Hinson, SPRAYER INSECTICIDE Cervicalgia (Primary Dx) 06/13/2024 1:30 PM EST Treatment [address] [address] Arturo Hinson, SPRAYER INSECTICIDE Cervicalgia (Primary Dx) 06/08/2024 12:30 PM EST Treatment [address] [address] Arturo Hinson, SPRAYER INSECTICIDE Cervicalgia (Primary Dx) 06/06/2024 12:30 PM EST Treatment [address] [address] Cari Mays, PT Cervicalgia (Primary Dx); Lumbar radiculopathy 06/03/2024 1:00 PM EST Evaluation [address] [address] Cari Mays, PT Cervicalgia (Primary Dx); Lumbar radiculopathy 06/03/2024 Plan of Care Documentation [address] [address] from Last 3 Months Social History Tobacco Use Types Packs/Day Years Used Date Smoking Tobacco: Never Assessed Sex and Gender Information Value Date Recorded Sex Assigned at Not on file Gender Identity Not on file Sexual Orientation Not on file Job Start Date Occupation Industry Not on file Not on file Not on file Plan of Treatment Health Maintenance Due Date Last Done Comments Hepatitis A Vaccines (1 of 2 - Risk 2-dose series) 1995 Hepatitis B Vaccines (1 of 3 - 19+ 3-dose series) 1995 COVID-19 Vaccine (2023-2 5 season) 2024 Influenza Vaccine (#1) 2024 Colorectal Cancer Screening: Colonoscopy 05/31/2024 Depression Screening 05/31/2024 HIV Screening 05/31/2024 Hepatitis C Screening 05/31/2024 Social Influencers of Health Screening 05/31/2024 Cholesterol Screening (Lipid Panel) 12/24/2025 12/24/2020 DTaP,Tdap,and Td Vaccines (2 - Td or Tdap) 11/30/2028 11/30/2018 HIB Vaccines Aged Out No longer eligi ble based on patient's age to complete this topic HPV Vaccines Aged Out No longer eligi ble based on patient's age to complete this topic IPV Vaccines Aged Out No longer eligi ble based on patient's age to complete this topic MMR Vaccines Aged Out No longer eligi ble based on patient's age to complete this topic Meningococcal ACWY Vaccine Aged Out N o longer eligible based on patient's age to complete this topic Pneumococcal Vaccine: Pediat rics (0 to 5 Years) and At-Risk Patients (6 to 64 Years) Aged Out No longer eligi ble based on patient's age to complete this topic RSV Immunization Patients Un ricki 20 months Aged Out No longer eligible b ased on patient's age to complete this topic Varicella Vaccines Aged Out No longer eligible based on patient's age to complete this topic Goals Goal Patient Goal Type Associated Problems Recent Progress Patient-Stated? Author STG in 4 weeks General No Cari Mays, PT Note: Short Term Goals 1. Initiate home exercise program. 2. Pain will be improved by 2-3 points on VAS. 3. Patient will improve cervical DNF endurance to 10 sec hold on test. 4. Patient will improve cervical ROM by 5 deg. 5. Patient will improve lumbar ext ROM by 10 deg LTG 6-8 weeks General No Cari Mays, PT Note: Studio Sales Associate Goals 1. Patient will be independent with home exercise program to maintain therapeutic gains. 2. Patient will be able to sit for 60 min with min to no pain 3. Patient will be able to bend over with min to no pain 4. Patient will be able to sit to stand with min to no pain or limitation 5. Patient will be able to be able to supine to sit with min to no pain or limitation. Care Teams Loftsman/Woman Relationship Specialty Start Date End Date Jayashree Stevenson NP PCP - General Family Medicine 06/02/24
== END 2024-08-15 11:53 | disposition home or self-care (01) ==
PROVIDERS: PCP Nurse Practitioner; Visit Provider Nurse Practitioner Family
DX: R31.0 Gross hematuria (principal); F17.200 Nicotine dependence, unspecified, uncomplicated; Z13.9 Encounter for screening, unspecified
CPT/HCPCS: 99203

== ENCOUNTER 2024-09-14 11:13 | Outpatient (REF) | payer MEDICAID, SELFPAY ==
[2024-09-14 12:03] LABS: Urine Cytology See Pathology rpt
[2024-09-14 12:21] LABS: Blood Urea Nitrogen 10 mg/dL (9-16); Estimated Glomerular Filt Rate > 60
--- OUTSIDE RECORDS SUMMARY | 2024-09-14 14:11 | XMS_ITS | Patient Health Record ---
Author Organization [facility] Address [address] [place], [place] [phone] Care Team Providers Care Petroleum Inspector Supervisor Name Role Phone Rupal Galaviz Primary Care Provider Dora Rebolledo Unavailable [phone] [facility], Nursing Unavailable [phone] Allergies No Known Allergies Results Component Value Reference Range Notes FECAL GLOBIN BY IMMUNOCHEMIS TRY Reviewed date:05/20/2024 09:55:51 AM Interpretation:Negative Performing Lab:NL2, [facility] [address] Anthony Manzanares Notes/Report: FASTING: UNKNOWN FECAL GLOBIN BY IMMUNOCHEMISTRY SEE NOTE FECAL GLOBIN BY IMMUNOCHEMISTRY Micro Number: [id number] Test Status: Final Specimen Source: Insu () [...] date:05/10/2024 09:20:42 AM Interpretation:Normal Performing Lab: Notes/Report: [employer], a member of [address] [address] Heel Turner - Kelly Vazquez MD GLYCATED HEMOGLOBIN A1C [...] Reviewed date:05/13/2024 10:50:15 AM Interpretation:Negative Performing Lab:NL2, [facility] [address] [place], [place] [address] Anthony Norriselena Notes/Report: NON-FASTING QUANTIFERON(R)-TB GOLD PLUS, [...] T-lymphocytes. For additional information, please refer to https://education.SecureMedia.Revelens/faq/WCB564 (This link is being provided for informational/ [...] Diagnosis 1 Low income (Z59.6) Referral Organization [facility] Referring Provider First Name Nursing Referring Provider Last Name [facility] Referring Provider Speciality Family Pra ctice Referred Organization [facility] Referred Address [address] [place] [id number], Referred Provider Specialty Dental Gener al Practice Referral Priority Routine Reason evaluate and treat f or cervicalgia and lumbar pain Diagnosis 1 Radiculopathy, lumba r region (M54.16) Diagnosis 2 Cervicalgia (M54.2) Referral Organization [facility] Referring Provider First Name Rupal Referring Provider Last Name Elva Referring Provider Speciality Nurse Prac titioner Referred Provider Geraldine physical therapy aide krupa Referred Provider Specialty Physiotherap y General Notes Antonella Pardo 07:59:30 AM > notes faxed to [phone], Antonella Pardo 06/01/2024 10:27:38 AM > appt scheduled for 06/03 @1:00pm, Antonella Pardo 06/30/2024 09:56:08 AM >requested notesCorinna Paris 07/07/2024 09:20:05 AM > pt. attended, notes to scan Referral Priority Routine Referral Appointment Date 06/03/2024 Reason [facility], [address], [facility] [address] P: [phone] F: [phone] evaluate for Bilateral renal cyst and left adrenal nodule probably representing adenoma seen in abd-pelvis CT during ED visit for abd/flank pain Diagnosis 1 Cyst of kidney, acqu ired (N28.1) Referral Organization [facility] Referring Provider First Name Rupal Referring Provider Last Name Elva Referring Provider Speciality Nurse Silvana lutz [facility] Specialty Nephrology General Notes sent page 10 of [facility] ED visit Corinna escobar Paris 06/24/2024 01:13:08 PM > Faxed to R&T associatesCorinna Paris 06/28/2024 11:49:06 AM > Pt. scheduled 07/14/24 @2:[address] Mart located at [address] [place] [address] Dr [facility] 07/06/2024 01:33:59 PM > pt is aware of appt, Antonella Pardo 07/26/2024 11:18:35 AM > requested notes from [facility] MR-Donna Monica 07/28/2024 09:07:32 AM >Pt [...] Status W/U Status Risk Notes Problem Thyrotoxicosis (00989370) Thyrotoxicosis, unspecified without thyrotoxic crisis or storm (E05.90) Active confirmed Problem Overweight (092238833) Overweight (E66.3) Active confirmed Problem Mixed hyperlipidemia (359083989) Mixed hyperlipidemia (E78.2) Active confirmed Problem Lumbar radiculopathy (970819294) Radiculopathy, lumbar region (M54.16) Active confirmed Problem Cervicalgia (67261281) Cervicalgia (M54.2) Active confirmed Problem Low income (975394387) Low income (Z59.6) Active confirmed Problem Nondependent opioid abuse in remission (461413433) Opioid abuse, in remission (F11.11) Active confirmed Problem BMI 25-29 - overweight (634038684) Body mass index [BMI] 29.0-29.9, adult (Z68.29) Active confirmed Problem Sheltered homelessness (715906142458455) Sheltered homelessness (Z59.01) Active confirmed Problem Anxiety disorder (230828855) Anxiety disorder, unspecified (F41.9) Inactive confirmed Problem Psychophysiologic insomnia (851054884) Psychophysiologic insomnia (F51.04) Inactive confirmed Problem Homelessness (60201633) Homelessness (Z59.0) Inactive confirmed Vital Signs Temperature 97.5 degrees Fahrenheit 05/09/2024 Blood pressure diastolic 87 05/09/2024 Oximetry 98 05/09/2024 Height 72 in 05/23/2024 Blood pressure systolic 131 05/09/2024 Weight 220.2 lbs 05/09/2024 BMI 29.86 kg/m2 05/09/2024 Encounters Encounter Location Date Provider Diagnosis [address] [phone] 04/08/2024 Nursing [facility] Encounter for screening for COVID-[address] [id number] 05/09/2024 Rupal Galaviz Encounter for general adult [...] Cervicalgia M54.2 and Sheltered homelessness Z59.01 [facility] [address] [place] [address] [facility] [place] [phone] 05/23/2024 Edosbaldo Galaviz Person consulting for explanation of examination or test findings Z71.2 ; Thyrotoxicosis, unspecified without thyrotoxic crisis or storm E05.90 ; Encounter for screening for COVID-19 Z11.52 and Mixed hyperlipidemia E78.2 [facility] [address] [place] [phone] 06/21/2024 Rupal Galaviz Cyst of kidney, acquired [...] phone intake to reestablish medical care at [facility], pt is not interested in receiving MH services and he want Dental care from [facility]. pt is renting an apartment with his partner at [facility]. pt is working but he need to [...] PROFILE 05/09/2024 Next Appt Details Provider Name:Nursing [facility], 11/21/2024 09:00:00 AM, [address] [facility], [place], [place], [id number], Insurance Providers Payer Name Payer Address Payer Phone Subscriber Number Group Number Insured Name Patient Relationship to Insured Coverage Start Date Coverage End Date [place] C3 [address] [place], [place] [id number] Eliezer Schulte Self - patient is the insured 0 Medications Administered Medication Instructions Date of Administration Dosage Notes Naltrexone extended-release injectable suspension 05/22/2020 380 mg [facility] [id number] Medical (General) History Medical History History ICD Code Opiate dependence Depression Anger Issues Surgical History Surgery Date(Month/Year) Back surgery - Buldging disc 1998 Hospitalization History Reason Date(Month/Year) [facility] - Detox 03/2020
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
--- OUTSIDE RECORDS SUMMARY | 2024-09-14 14:12 | XMS_ITS ---
Author Organization [facility] Address [address] [place], [place] [phone] Care Team Providers Care Lvn Home Health Name Role Phone Jayashree Stevenson Primary Care Provider Dora Rebolledo Unavailable [phone] Reason For Referral Reason [facility], [address] [place] [address] [facility] [address] P: [phone] F: [phone] evaluate for Bilateral renal cyst and left adrenal nodule probably representing adenoma seen in abd-pelvis CT during ED visit for abd/flank pain Diagnosis 1 Cyst of kidney, acqu ired (N28.1) Referral Organization [facility] Referring Provider First Name Jayashree Referring Provider Last Name Elva Referring Provider Speciality Nurse Prac titioner [facility] Specialty Nephrology General Notes sent page 10 of [facility] ED visit notesCorinna Paris 06/24/2024 01:13:08 PM > Faxed to R&T associatesCorinna Paris 06/28/2024 11:49:06 AM > Pt. scheduled 07/14/24 @2:[address] Mart located at [address] [place] [address] Chi Hoffman MA, Rivera, Aracelis 07/06/2024 01:33:59 PM > pt is aware of apptEdvin Aracelis 07/26/2024 11:18:35 AM > requested notes from [facility] MR-Donna Monica 07/28/2024 09:07:32 AM >Pt no showed for appt 07/14. Referral Priority Routine Referral Appointment Date 07/14/2024 REASON FOR VISIT appt Encounters Encounter Location Date Provider Diagnosis [facility] [address] [place] [phone] 06/21/2024 Eddieliza Hongionan Cyst of kidney, acquired N28.1 Assessments Encounter Date Diagnosis (ICD Code) Assessment Notes Treatment Notes Treatment Clinical Notes 06/21/2024 Cyst of kidney, acquired (ICD-10 - N28.1) Plan Of Treatment Referrals Referral Date Details 06/24/2024 06/24/2024, [facility] [place], [address] [address] P: [phone] F: [phone] evaluate for Bilateral renal cyst and left adrenal nodule probably representing adenoma seen in abd-pelvis CT during ED visit for abd/flank pain, [facility] [place] Next Appt Details Provider Name:Nursing [facility], 11/21/2024 09:00:00 AM, [address] [place] [address], [phone], Progress Notes * Eliezer SCHULTEDOB: [birth year] (48 yo M)Acc No.[id number]:06/21/2024 Patient:?Eliezer SCHULTE :1975???Age:48 Y???Sex:Male Address:[address] [place] [address], [phone] Subjective: * Chief Complaints: * ???Appt * Medical History:? * Surgical History:? * Hospitalization/Major Diagno stic Procedure:? * Medications:? Objective: * Vitals:? * Physical Examination:? Assessment: * Assessment: 1.?Cyst of kidney, acquired - N28.1 (Primary)??? Plan: * Treatment: * Procedure Codes:? * true * Date:? Generated for Nicole licea/Ana/eTransmitting on:?09/14/2024 02:12 PM EST Consultation Request Notes Referral Date Referring Provider Referred Provider Not brando 06/24/2024 Casionan, Eddieliza [facility] [place] [place], [address] [address], [facility] [address] P: [phone] F: [phone] evaluate for Bilateral renal cyst and left adrenal nodule probably representing adenoma seen in abd-pelvis CT during ED visit for abd/flank pain
--- OUTSIDE RECORDS SUMMARY | 2024-09-14 14:12 | XMS_ITS | Encounter Summary ---
Author Organization [employer] Address [address] [facility] 7t [place] [address] Care Team Providers Care Fire Observer Name Role Phone Belem Howell Primary Care Provider [phone] Encounter Details Date Type Department Care Team (Late st Contact Info) Description 08/20/[address] [facility] MEDICINE [address] [place], [place] [phone] Belem Howell ANP [address] [place], [place] [phone] Social History Tobacco Use Types Packs/Day Years [...] to the patient asking him to call [facility] med records so we could discuss [...] on filedocumented in this encounter Care Teams Fire Observer Relationship Specialty Start Date End Date Belem Howell ANP [address] [place] [address] PCP - General Family Medicine 04/09/22 09/03/23 documented as of this encounter
--- OUTSIDE RECORDS SUMMARY | 2024-09-14 14:12 | XMS_ITS | Clinical Summary ---
Author Organization [employer] Address [address] [facility] 7t [place] [address] Care Team Providers Care Property Insurance Inspector Name Role Phone Unavailable Primary Care Provider [...] 5 Years) and At-Risk Patients (6 to 49) Years) Aged Out No longer elig ible based on patient's age to complete this [...] LAB SYSTEM Cholesterol, Total 168 <200 mg/dL [facility] HDL Cholesterol 43 > OR = 40 mg/dL [facility] LDL Cholesterol 99 mg/dL (calc) [facility] Comment: Reference range: <100 ?? Desirable range <100 mg/dL for primary prevention; ?? <70 mg/dL for patients with CHD or diabetic patients ?? with > or = 2 CHD risk factors. ?? LDL-C is now calculated using the Irwin ?? calculation, which is a validated novel method providing ?? better accuracy than the Friedewald equation in the ?? estimation of LDL-C. ?? Esteban GUTHRIE et al. CORKY. 2013;310(19): 9661-3131 ?? (http://Nokori.Test.tv/faq/EXI765) Non-HDL Cholesterol 125 <130 mg/dL (calc) [facility] Comment: For patients with diabetes plus 1 major ASCVD risk ?? factor, treating to a non-HDL-C goal of <100 mg/dL ?? (LDL-C of <70 mg/dL) is considered a therapeutic ?? option. Triglycerides 154(H) <150 mg/dL [facility] 12/24/2020 9:48 AM EDT us Jf Salamanca MD LAB BLOOD ORDERABLES Final R esult [facility] [address] from Last 3 Months or Most Recently Relevant to Health Maintenance Insurance [facility] C3
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
--- OUTSIDE RECORDS SUMMARY | 2024-09-14 14:12 | XMS_ITS | Clinical Summary ---
Author Organization [address] [facility] Address [address] [place] [address] Phone Care Team Providers Care Detonator Maker Name Role Phone Elva Jayashree RASHEED Primary Care Provider [phone] Active Problems Problem Noted Date Diagnosed Date Cervicalgia 06/06/2024 Lumbar radiculopathy 06/06/2024 Encounters Date Type Department Care Team Description 07/06/2024 11:30 AM EST Treatment [facility] [address] [phone] Tabatha, Cari, PT Cervicalgia (Primary Dx); Lumbar radiculopathy 07/04/2024 12:30 PM EST Treatment [facility] [address] [phone] Dante Virgen, MAILROOM PERSONNEL Cervicalgia (Primary Dx); Lumbar radiculopathy 06/29/2024 12:30 PM EST Treatment [facility] [address] [phone] [place]ide [place], Cari, PT Cervicalgia (Primary Dx); Lumbar radiculopathy 06/27/2024 12:30 PM EST Treatment [facility] [address] [phone] Tabatha, Cari, PT Cervicalgia (Primary Dx); Lumbar radiculopathy 06/15/2024 12:30 PM EST Treatment [address] [address] Arturo Hinson, MAILROOM PERSONNEL Cervicalgia (Primary Dx) from Last 3 Months Social History Tobacco Use Types Packs/Day Years Used Date Smoking Tobacco: Never Assessed Sex and Gender Information Value Date Recorded Sex Assigned at Not on file Legal Sex Male 12:52 AM EST Gender Identity Not on file Sexual Orientation Not on file Plan of Treatment Health [...] patient's age to complete this topic Meningococcal B Vacine Aged Out No lo nger eligible based on patient's age to complete [...] by 10 deg LTG 6-8 weeks General Cari Wharton, PT Note: Care Home Goals 1. Patient will be independent with [...] with min to no pain or limitation. Insurance MEDICAID - [place] Care Teams Detonator Maker Relationship Specialty Start Date End Date Jayashree Stevenson NP PCP - General Family Medicine 06/02/24
== END 2024-09-14 11:14 | disposition home or self-care (01) ==
LOC: HO.LAB 11:13
PROVIDERS: Visit Provider Nurse Practitioner Family
DX: F17.200 Nicotine dependence, unspecified, uncomplicated (principal); R31.0 Gross hematuria; Z13.9 Encounter for screening, unspecified
CPT/HCPCS: 36415; 82565; 84520; 88112

== ENCOUNTER 2024-09-16 17:27 | Emergency (ER) | payer MEDICAID, SELFPAY ==
[2024-09-16 17:34] VITALS: BP 154/92; BP 162/93; PULSE 112; PULSE 114; RESP 18; TEMP 36.8; O2SAT 97; BMI 24.4
[2024-09-16 17:52] VITALS: RESP 16
--- NOTE | 2024-09-16 18:01 | PC.NURSE ---
Eliezer comes to the ER today reporting suicidal ideation after a recent relapse on crack cocaine. He said he had been sober for 6 months prior and relapsed yesterday. Since then he feels like he doesn't want to be here anymore . He denies any specific plans to harm himself at this time. He is very tearful, unable to maintain eye contact, appearing very sad. Patient is help seeking, wanting to speak to CARE team. He reports having been to detox in the past and feeling as though it helped him, he denies any inpatient stays. Pt is now resting in his room
[2024-09-16 18:09] LABS: MANUAL DIFF FLAG NO
[2024-09-16 18:17] LABS: Appearance Urine Cloudy; Color Urine Yellow; Glucose Urine UA Negative (Negative); Leukocyte Esterase Urine Negative (Negative); Nitrite Urine Negative (Negative); PH 5.5 (5.0-9.0); Specific Gravity - Urine >= 1.030 (1.005-1.025); UMIC TRIGGER UACC YES; Urine Blood Moderate (2+) (Negative); Urine Ketones 40 mg/dL (Negative); Urine Protein 100 (2+) mg/dL (Neg-Trace)
--- OUTSIDE RECORDS SUMMARY | 2024-09-16 18:17 | XMS_ITS | Encounter Summary ---
Author Organization [employer] Address [address] [facility] 7t [place] [address] Care Team Providers Care Records Clerk Name Role Phone Belem Howell Primary Care Provider [phone] Encounter Details Date Type Department Care Team (Late st Contact Info) Description 08/20/2023 Telephone [facility] MEDICINE [address] [place], [place] [phone] Belem Howell ANP [address] [place], [place] [phone] Social History Tobacco Use Types Packs/Day Years [...] to the patient asking him to call [facility] med records so we could discuss paperwork [...] on filedocumented in this encounter Care Teams Records Clerk Relationship Specialty Start Date End Date Belem Howell ANP [address] [place] [id number] PCP - General Family Medicine 04/09/22 09/03/23 documented as of this encounter
--- OUTSIDE RECORDS SUMMARY | 2024-09-16 18:17 | XMS_ITS | Patient Health Record ---
Author Organization [facility] Address [address], [place] [id number] Care Team Providers Care Zoo Keeper Name Role Phone Rupal Galaviz Primary Care Provider [phone] Dora Rebolledo Unavailable [phone] [facility], Nursing Unavailable [phone] Allergies No Known Allergies Results Component Value Reference Range Notes FECAL GLOBIN BY IMMUNOCHEMIS TRY Reviewed date:05/20/2024 09:55:51 AM Interpretation:Negative Performing Lab:NL2, [facility] [address] Anthony Manzanares Notes/Report: FASTING: UNKNOWN FECAL GLOBIN BY IMMUNOCHEMISTRY SEE NOTE FECAL GLOBIN BY IMMUNOCHEMISTRY Micro Number: [id number] Test Status: Final Specimen Source: Insu () [...] date:05/10/2024 09:20:42 AM Interpretation:Normal Performing Lab: Notes/Report: [facility], a member of [address] [address] Tour Agent - Kelly Vazquez MD GLYCATED HEMOGLOBIN A1C [...] Reviewed date:05/13/2024 10:50:15 AM Interpretation:Negative Performing Lab:NL2, [facility] (?) [facility] [address] [place], [place] [address] Anthony Norriselena Notes/Report: NON-FASTING QUANTIFERON(R)-TB GOLD PLUS, [...] T-lymphocytes. For additional information, please refer to https://education.LugIron Software.SodaStream/faq/QUU247 (This link is being provided for informational/ [...] Diagnosis 1 Low income (Z59.6) Referral Organization [facility] Referring Provider First Name Nursing Referring Provider Last Name [facility] Referring Provider Speciality Family Pra ctice Referred Organization [facility] Referred Address [address] [place] [phone], Referred Provider Specialty Dental Gener al Practice Referral Priority Routine Reason evaluate and treat f or cervicalgia and lumbar pain Diagnosis 1 Radiculopathy, lumba r region (M54.16) Diagnosis 2 Cervicalgia (M54.2) Referral Organization [facility] Referring Provider First Name Rupal Referring Provider Last Name Elva Referring Provider Speciality Nurse Prac titioner Referred Provider Geraldine chemist physical krupa Referred Provider Specialty Physiotherap y General Notes Antonella Pardo 07:59:30 AM > notes faxed to [phone], Antonella Pardo 06/01/2024 10:27:38 AM > appt scheduled for 06/03 @1:00pm, Antonella Pardo 06/30/2024 09:56:08 AM >requested notesCorinna Paris 07/07/2024 09:20:05 AM > pt. attended, notes to scan Referral Priority Routine Referral Appointment Date 06/03/2024 Reason [facility], [address], [facility] [address] P: [phone] F: [phone] evaluate for Bilateral renal cyst and left adrenal nodule probably representing adenoma seen in abd-pelvis CT during ED visit for abd/flank pain Diagnosis 1 Cyst of kidney, acqu ired (N28.1) Referral Organization [facility] Referring Provider First Name Rupal Referring Provider Last Name Elva Referring Provider Speciality Nurse Silvana lutz Ref[facility] Provider Specialty Nephrology General Notes [facility] page 10 [facility] [place] Corinna escobar Paris 06/24/2024 01:13:08 PM > Faxed to R&T associatesCorinna Paris 06/28/2024 11:49:06 AM > Pt. scheduled 07/14/24 @2:[address] Mart located at [address] [place] [address] Dr Garcia [facility] Aracelis 07/06/2024 01:33:59 PM > pt is aware of appt, Antonella Pardo 07/26/2024 11:18:35 AM > requested notes from [facility] MR-Donna Monica 07/28/2024 09:07:32 AM >Pt no [...] Status W/U Status Risk Notes Problem Thyrotoxicosis (01478328) Thyrotoxicosis, unspecified without thyrotoxic crisis or storm (E05.90) Active confirmed Problem Overweight (162838401) Overweight (E66.3) Active confirmed Problem Mixed hyperlipidemia (665117080) Mixed hyperlipidemia (E78.2) Active confirmed Problem Lumbar radiculopathy (783131866) Radiculopathy, lumbar region (M54.16) Active confirmed Problem Cervicalgia (97975534) Cervicalgia (M54.2) Active confirmed Problem Low income (649462331) Low income (Z59.6) Active confirmed Problem Nondependent opioid abuse in remission (599064184) Opioid abuse, in remission (F11.11) Active confirmed Problem BMI 25-29 - overweight (575707244) Body mass index [BMI] 29.0-29.9, adult (Z68.29) Active confirmed Problem Sheltered homelessness (139656254989243) Sheltered homelessness (Z59.01) Active confirmed Problem Anxiety disorder (532100909) Anxiety disorder, unspecified (F41.9) Inactive confirmed Problem Psychophysiologic insomnia (595028696) Psychophysiologic insomnia (F51.04) Inactive confirmed Problem Homelessness (85431099) Homelessness (Z59.0) Inactive confirmed Vital Signs Temperature 97.5 degrees Fahrenheit 05/09/2024 Blood pressure diastolic 87 05/09/2024 Oximetry 98 05/09/2024 Height 72 in 05/23/2024 Blood pressure systolic 131 05/09/2024 Weight 220.2 lbs 05/09/2024 BMI 29.86 kg/m2 05/09/2024 Encounters Encounter Location Date Provider Diagnosis [address] [id number] 04/08/2024 Nursing [facility] Encounter for screening for COVID-[address] [id number] 05/09/2024 Rupal Galaviz Encounter for general adult [...] Cervicalgia M54.2 and Sheltered homelessness Z59.01 [facility] [address] [place] [address] [facility] [place] [phone] 05/23/2024 Edosbaldo Galaviz Person consulting for explanation of examination or test findings Z71.2 ; Thyrotoxicosis, unspecified without thyrotoxic crisis or storm E05.90 ; Encounter for screening for COVID-19 Z11.52 and Mixed hyperlipidemia E78.2 [facility] [address] [place] [phone] 06/21/2024 Rupal Galaviz Cyst of kidney, acquired [...] phone intake to reestablish medical care at [facility], pt is not interested in receiving MH services and he want Dental care from [facility]. pt is renting an apartment with his partner at [facility]. pt is working but he need to [...] PROFILE 05/09/2024 Next Appt Details Provider Name:Nursing [facility], 11/21/2024 09:00:00 AM, [address] [facility], [place], [place], [phone], Insurance Providers Payer Name Payer Address Payer Phone Subscriber Number Group Number Insured Name Patient Relationship to Insured Coverage Start Date Coverage End Date [place] C3 [address] [place], [place] [id number] Eliezer Schulte Self - patient is the insured 0 Medications Administered Medication Instructions Date of Administration Dosage Notes Naltrexone extended-release injectable suspension 05/22/2020 380 mg [facility] [id number] Medical (General) History Medical History History ICD Code Opiate dependence Depression Anger Issues Surgical History Surgery Date(Month/Year) Back surgery - Buldging disc 1998 Hospitalization History Reason Date(Month/Year) [facility] - Detox 03/2020
--- OUTSIDE RECORDS SUMMARY | 2024-09-16 18:17 | XMS_ITS | Clinical Summary ---
Author Organization [employer] Address [address] [facility] 7t [place] [address] Care Team Providers Care Certified Maintenance Welder Name Role Phone Unavailable Primary Care Provider [...] LAB SYSTEM Cholesterol, Total 168 <200 mg/dL [facility] HDL Cholesterol 43 > OR = 40 mg/dL [facility] LDL Cholesterol 99 mg/dL (calc) [facility] Comment: Reference range: <100 ?? [...] ?? Esteban GUTHRIE et al. CORKY. 2013;310(19): 2759-3560 ?? (http://Sharetivity.DemystData/faq/GME773) Non-HDL Cholesterol 125 <130 mg/dL (calc) [facility] Comment: For patients with diabetes plus 1 major ASCVD risk ?? factor, treating to a non-HDL-C goal of <100 mg/dL ?? (LDL-C of <70 mg/dL) is considered a therapeutic ?? option. Triglycerides 154(H) <150 mg/dL [facility] 12/24/2020 9:48 AM EDT us Jf Salamanca MD LAB BLOOD ORDERABLES Final R esult [facility] [address] from Last 3 Months or Most Recently Relevant to Health Maintenance Insurance [facility] C3
--- OUTSIDE RECORDS SUMMARY | 2024-09-16 18:17 | XMS_ITS | Clinical Summary ---
Author Organization [address] [facility] Address [address] [place] [address] Phone Care Team Providers Care Supervisor Bottle House Cleaners Name Role Phone Sadafashwini Jayashree RASHEED Primary Care Provider [phone] Active Problems Problem Noted Date Diagnosed Date Cervicalgia 06/06/2024 Lumbar radiculopathy 06/06/2024 Encounters Date Type Department Care Team Description 07/06/2024 11:30 AM EST Treatment [facility] [address] [phone] Tabatha, Cari, PT Cervicalgia (Primary Dx); Lumbar radiculopathy 07/04/2024 12:30 PM EST Treatment [address] [phone] Dante Virgen, CONSTRUCTION FRAMER Cervicalgia (Primary Dx); Lumbar radiculopathy 06/29/2024 12:30 PM EST Treatment [address] [phone] [place], Cari, PT Cervicalgia (Primary Dx); Lumbar radiculopathy 06/27/2024 12:30 PM EST Treatment [address] [phone] Tabatha, Cari, PT Cervicalgia (Primary Dx); Lumbar radiculopathy from Last 3 Months Social History Tobacco [...] weeks General No Cari Mays, PT Note: [place] Bottom Maker Goals 1. Patient will be independent with [...] limitation. Insurance MEDICAID - [place] Care Teams Supervisor Bottle House Cleaners Relationship Specialty Start Date End Date Jayashree Stevenson NP PCP - General Family Medicine 06/02/24
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
--- OUTSIDE RECORDS SUMMARY | 2024-09-16 18:17 | XMS_ITS ---
Author Organization [facility] Address [address] [place], [place] [phone] Care Team Providers Care Spring Repairer Helper Hand Name Role Phone Jayashree Stevenson Primary Care Provider Dora Rebolledo Unavailable [phone] Reason For Referral Reason [facility]al [facility], [address] [place] [address] [address] P: [phone] F: [phone] evaluate for Bilateral renal cyst and left adrenal nodule probably representing adenoma seen in abd-pelvis CT during ED visit for abd/flank pain Diagnosis 1 Cyst of kidney, acqu ired (N28.1) Referral Organization [facility] Referring Provider First Name Jayashree Referring Provider Last Name Elva Referring Provider Speciality Nurse Prac titioner Ref[facility] Referred Provider Specialty Nephrology General Notes sent page [facility] [place] notesCorinna Paris 06/24/2024 01:13:08 PM > Faxed to R&T associatesCorinna Paris 06/28/2024 11:49:06 AM > Pt. scheduled 07/14/24 @2:[address] Mart located at [address] [place] [address] [place], Rivera, Aracelis 07/06/2024 01:33:59 PM > pt is aware of apptEdvin Aracelis 07/26/2024 11:18:35 AM > requested notes from [facility] MR-Donna Monica 07/28/2024 09:07:32 AM >Pt no showed for appt 07/14. Referral Priority Routine Referral Appointment Date 07/14/2024 REASON FOR VISIT appt Encounters Encounter Location Date Provider Diagnosis [facility] [address] [place] [phone] 06/21/2024 Eddieliza Hongionan Cyst of kidney, acquired N28.1 Assessments Encounter Date Diagnosis (ICD Code) Assessment Notes Treatment Notes Treatment Clinical Notes 06/21/2024 Cyst of kidney, acquired (ICD-10 - N28.1) Plan Of Treatment Referrals Referral Date Details 06/24/2024 06/24/2024, [facility], [address] [address] P: [phone] F: [phone] evaluate for Bilateral renal cyst and left adrenal nodule probably representing adenoma seen in abd-pelvis CT during ED visit for abd/flank pain, [facility] [place] Next Appt Details Provider Name:Nursing [facility], 11/21/2024 09:00:00 AM, [address] [place] [address], [phone], Progress Notes * Eliezer SCHULTEDOB: [birth year] (48 yo M)Acc No.[id number]:06/21/2024 Patient:?Eliezer SCHULTE :1975???Age:48 Y???Sex:Male Address:[address] [place] [address], [address] Subjective: * Chief Complaints: * ???Appt * Medical History:? * Surgical History:? * Hospitalization/Major Diagno stic Procedure:? * Medications:? Objective: * Vitals:? * Physical Examination:? Assessment: * Assessment: 1.?Cyst of kidney, acquired - N28.1 (Primary)??? Plan: * Treatment: * Procedure Codes:? * true * Date:? Generated for Nicole licea/Ana/eTransmitting on:?09/16/2024 06:17 PM EST Consultation Request Notes Referral Date Referring Provider Referred Provider Not brando 06/24/2024 Casionan, Eddieliza [facility] [place], [address] [address], [facility] [address] P: [phone] F: [phone] evaluate for Bilateral renal cyst and left adrenal nodule probably representing adenoma seen in abd-pelvis CT during ED visit for abd/flank pain
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
[2024-09-16 18:23] LABS: Basophils Percent Auto 0.2 % (0-2); Eosinophils Percent Auto 0.2 % (0-4); Hematocrit 45.3 % (42.0-52.0); Hemoglobin 15.4 g/dl (14.0-18.0); Imm Gran Abs Auto 0.05 X10*3/uL (0.00-0.03); Imm Gran Pct Auto 0.3 % (0.0-0.4); Lymphocytes Absolute Auto 1.7 X10*3/uL (1.2-4.9); Lymphocytes Percent Auto 11.7 % (20-40); Mean Corpuscular Hemoglobin 29.3 pg (27.0-33.0); Mean Corpuscular Volume 86.1 fL (80.0-98.0); Mean Platelet Volume 9.1 fL (9.4-12.4); Monocytes Absolute Auto 1.3 X10*3/uL (0.1-1.2); Monocytes Percent Auto 8.6 % (2-11); Neutrophils Absolute Auto 11.6 x10*3/uL (2.0-8.3); Platelet Count 338 X10*3/uL (160-400); Red Blood Count 5.26 X10*6/uL (4.60-5.80); Red Cell Distribution Width 13.1 % (11.0-16.0); White Blood Count 14.7 X10*3/uL (4.8-10.8)
[2024-09-16 18:27] LABS: Amphetamine Screen Urine Not Detected (Not Detect); Barbiturates, Urine Not Detected (Not Detect); Benzodiazepines Screen Urine Not Detected (Not Detect); Buprenorphine Scr Not Detected (Not Detect); Cannabinoid Screen Urine Not Detected (Not Detect); Cocaine Screen Urine POSITIVE (Not Detect); Fentanyl, urine Not Detected (Not Detect); Methadone Screen, Urine Not Detected (Not Detect); Opiate Screen Urine Not Detected (Not Detect); Oxycodone Screen Urine Not Detected (Not Detect); Phencyclidine Screen Urine Not Detected (Not Detect)
[2024-09-16 18:28] LABS: Alanine Aminotransferase 48 U/L (0-40); Albumin Level 4.8 g/dL (3.5-5.0); Alkaline Phosphatase 62 U/L (39-117); Anion Gap 15 (12-20); Aspartate Amino Transferase 60 U/L (5-37); Bilirubin Total 1.3 mg/dL (0.0-1.0); Blood Urea Nitrogen 13 mg/dL (9-16); Calcium 9.6 mg/dL (8.4-10.2); Carbon Dioxide 21 mmol/L (22-29); Chloride 106 mmol/L (96-108); Creatinine Clr Calc Pharmacy 118.7; Estimated Glomerular Filt Rate > 60; Ethanol < 10 mg/dL; Glucose Random 100 mg/dL (60-115); Potassium 4.2 mmol/L (3.3-5.1); Sodium 138 mmol/L (135-145); Total Protein 8.2 g/dL (6.5-8.0)
[2024-09-16 18:33] LABS: Bacteria Urine None Seen (None Seen); Hyaline Casts Urine 0-2 /LPF (0-2); RBC Urine 0-2 /HPF (0-2); Squamous Epithelial Cell Urine 0-2 /HPF (0-2); WBC Urine 0-5 /HPF (0-5)
--- NOTE | 2024-09-16 19:06 | ED.PSYCH ---
HPI - Psych General Chief Complaint: Psychiatric Symptoms Stated Complaint: substance abuse crack cocaine Time Seen by Provider: 09/16/24 18:29 Source: patient Limitations: no limitations History of Present Illness ED Provider: Mary Harrison PA-C HPI Narrative: 49-year-old male with a history of polysubstance abuse presents with SI. Patient states he has been sober for 6 months, he recently relapsed on crack cocaine. When asked if the patient has a plan for self-harm he states ?I do not know, I just do not want to be here anymore?. The patient was apparently tearful when he was triaged. Related Data Home Medications ?Medication ?Instructions ?Recorded ?Confirmed No Known Home Meds 08/15/24 09/16/24 Allergies Allergy/AdvReac Type Severity Reaction Status Date / Time No Known Allergies Allergy Mild NOT Verified 09/16/24 17:42 APPLICABLE Review of Systems Review of Systems: Yes all other systems are reviewed and are negative Constitutional: Constitutional: Denies fatigue and Denies fever(s) Cardiovascular: Cardiovascular: Denies chest pain and Denies dyspnea Respiratory: Respiratory: Denies cough and Denies dyspnea Gastrointestinal: Gastrointestinal: Denies abdominal pain, Denies diarrhea, Denies nausea and Denies vomiting Musculoskeletal: Musculoskeletal: Denies back pain Endocrine: Endocrine: Denies fatigue PMF Past Medical History Attestation statement: The following information was validated with the patient. Social History Social History Smoked in Last 30 Days: Yes Use of substances other than those prescribed or required for medical reasons: Yes Substance Use Type: Crack/Cocaine Substance Use Frequency Other:: recent relapse Last Used Substance: Just Prior to Admission Any prior treatment program specific to substance use: Yes Advance Directives: No Advance Directives Information Provided: No Physical Exam Vital Signs: Vital Signs: Last Vital Signs Temp 98.3 F 09/16/24 17:34 Pulse 76 09/17/24 01:00 Resp 18 09/17/24 01:00 BP 145/82 H 09/17/24 01:00 Pulse Ox 97 09/17/24 01:00 O2 Del Method Room Air 09/17/24 01:00 BMI result Body Mass Index 24.4 Const: Other: Awake Orientation/consciousness: patient oriented x3 Resp: Effort & Inspection: normal respiratory effort Cardio: Other: Normal peripheral perfusion Skin: Other: Warm dry no rash Neuro: General: patient oriented x3, gait normal, no focal motor deficits and CN's II-XI intact bilaterally Psych: Other: Cooperative Course Course Course Narrative: observation care revealed that the patient does NOT meet psychiatric necessity for hospitalization. final disposition discussed with the patient. The patient completed observation care at 1156. Cleared by CARE team. He is going to follow up as outpatient. Medications Administered Discontinued Medications Generic Name Dose Route Start Last Admin Trade Name Miguel PRN Reason Stop Dose Admin Al Hydroxide/Mg Hydroxide 30 ml 09/17/24 05:00 09/17/24 05:04 Magnesium Hydrox/Alum Hydrox 30 Ml Oral.Susp PO 09/17/24 05:01 30 ml ONCE ONE Administration Melatonin 6 mg 09/16/24 20:52 09/16/24 21:12 Melatonin 3 Mg Tablet PO 09/16/24 20:53 6 mg ONCE ONE Administration Medical Decision Making Medical Decision Making [facility] Narrative: History: Per patient I have considered the following differential diagnoses: SI, HI, decompensated psychiatric illness, drug/alcohol intoxication Plan: We will be screening basic labs, serum ethanol and drug screen, the patient will be referred to the care team. I have independently reviewed the following tests: Labs: Slight leukocytosis, not anemic, no electrolyte abnormality, transaminitis noted, slight bump in bilirubin, U tox positive for cocaine, ethanol negative Lab Data 09/16/24 18:00 09/16/24 18:00 Labs: Lab Results 09/16/24 Range/Units 18:00 WBC 14.7 H (4.8-10.8) X10*3/uL RBC 5.26 (4.60-5.80) X10*6/uL Hgb 15.4 (14.0-18.0) g/dl Hct 45.3 (42.0-52.0) % MCV 86.1 (80.0-98.0) fL MCH 29.3 (27.0-33.0) pg MCHC 34.0 (31.0-36.0) g/dl RDW 13.1 (11.0-16.0) % Plt Count 338 (160-400) X10*3/uL MPV 9.1 L (9.4-12.4) fL Immature Gran % (Auto) 0.3 (0.0-0.4) % Neut % (Auto) 79.0 H (45-73) % Lymph % (Auto) 11.7 L (20-40) % Gosper % (Auto) 8.6 (2-11) % Eos % (Auto) 0.2 (0-4) % Baso % (Auto) 0.2 (0-2) % Lymph # (Auto) 1.7 (1.2-4.9) X10*3/uL [place] # (Auto) 1.3 H (0.1-1.2) X10*3/uL Eos # (Auto) 0.0 (0.0-0.4) X10*3/uL Baso # (Auto) 0.0 (0.0-0.2) X10*3/uL Abs Immat Gran (auto) 0.05 H (0.00-0.03) X10*3/uL Absolute Neuts (auto) 11.6 H (2.0-8.3) x10*3/uL Absolute Nucleated RBC 0.000 (0.0-0.012) X10*3/uL Nucleated RBC % (auto) 0.0 (0.0-0.2) /100WBC Sodium 138 (135-145) mmol/L Potassium 4.2 (3.3-5.1) mmol/L Chloride 106 (96-108) mmol/L Carbon Dioxide 21 L (22-29) mmol/L Anion Gap 15 (12-20) BUN 13 (9-16) mg/dL Creatinine 0.86 (0.5-1.4) mg/dL Estim Creat Clear Calc 118.7 Estimated GFR > 60 Random Glucose 100 (60-115) mg/dL Calcium 9.6 (8.4-10.2) mg/dL Total Bilirubin 1.3 H (0.0-1.0) mg/dL AST 60 H (5-37) U/L ALT 48 H (0-40) U/L Alkaline Phosphatase 62 (39-117) U/L Total Protein 8.2 H (6.5-8.0) g/dL Albumin 4.8 (3.5-5.0) g/dL Urine Color Yellow Urine Appearance Cloudy Urine pH 5.5 (5.0-9.0) Ur Specific [place] >= 1.030 H (1.005-1.025) Urine Protein 100 (2+) H (Neg-Trace) mg/dL Urine Glucose (UA) Negative (Negative) mg/dL Urine Ketones 40 (Negative) mg/dL Urine Blood Moderate (2+) H (Negative) Urine Nitrite Negative (Negative) Ur Leukocyte Esterase Negative (Negative) Urine RBC 0-2 (0-2) /HPF Urine WBC 0-5 (0-5) /HPF Ur Squamous Epith Cells 0-2 (0-2) /HPF Urine Bacteria None Seen (None Seen) Hyaline Casts 0-2 (0-2) /LPF Urine Opiates Screen Not Detected (Not Detect) Ur Buprenorphine Scrn Not Detected (Not Detect) ng/mL Ur Oxycodone Screen Not Detected (Not Detect) ng/mL Urine Methadone Screen Not Detected (Not Detect) ng/mL Urine Fentanyl Screen Not Detected (Not Detect) Ur Barbiturates Screen Not Detected (Not Detect) Ur Phencyclidine Scrn Not Detected (Not Detect) Ur Amphetamines Screen Not Detected (Not Detect) U Benzodiazepines Scrn Not Detected (Not Detect) Urine Cocaine Screen POSITIVE H (Not Detect) U Marijuana (THC) Screen Not Detected (Not Detect) Ethyl Alcohol < 10 mg/dL Discharge Plan Discharge Clinical Impression: Suicidal ideation, Cocaine abuse Patient Disposition: Home, Self-Care Instructions: Cocaine Abuse (ED), Help Prevent Suicide (ED) Additional Instructions: repeat your liver tests with your doctor in one week mild elevation likely due to drug use return for any worsening symptoms or concerns. You were seen in our Emergency Department today for treatment of a behavioral health issue. It is important after your visit that you follow up with either your behavioral health provider or a primary care doctor within 7 days.? If you have trouble finding a therapist you can reach out to [address] [phone] The National Suicide and Crisis Lifeline can be reached 7 days a week 24 hours a day.? Call 988 to speak with someone.? Return for any worsening symptoms or concerns such as thoughts of self harm or harm to others. Please call 911 if you feel your mental health is worsening.? Prescriptions: No Action No Known Home Meds Interventions: [place]-Suicide Risk Severity Scale Last Done: 09/16/24 17:52 Print Language: Malawian
--- NOTE | 2024-09-16 19:46 | PC.NURSE ---
patient appars to remain at rest presently awaits care team assessment respirations are even and unlabored patient appears in no distress.
[2024-09-16] MEDS: Melatonin 3 MG TABLET 6 MG PO (21:12)
[2024-09-17 01:00] VITALS: BP 145/82; PULSE 76; RESP 18; O2SAT 97
[2024-09-17] MEDS: Magnesium Hydrox/Alum Hydrox 30 ML ORAL.SUSP PO (05:04)
[2024-09-17 12:20] VITALS: BP 145/82; PULSE 76; RESP 18; TEMP 36.8; O2SAT 97
[2024-09-17 12:22] VITALS: BP 145/82; PULSE 76; RESP 18; TEMP 36.8; O2SAT 97
--- NOTE | 2024-09-17 13:08 | MHC.CARE ---
Pt was placed on alert with [facility] and is scheduled for a 3 day follow up.
--- NOTE | 2024-09-19 14:42 | MHC.CARE ---
CC referral was generated for patient and emailed to [facility]. Followup will be made to verify it was received.
== END 2024-09-17 12:24 | disposition home or self-care (01) ==
PROVIDERS: Emergency Provider Emergency Medicine
DX: R45.851 Suicidal ideations (principal); F14.10 Cocaine abuse, uncomplicated; Z51.81 Encounter for therapeutic drug level monitoring; Z79.899 Other long term (current) drug therapy; Z71.51 Drug abuse counseling and surveillance of drug abuser
CPT/HCPCS: 36415; 80053; 80307; 81001; 85025; 99285; S9485

== ENCOUNTER 2024-09-21 09:01 | Outpatient (REF) | payer MEDICAID, SELFPAY ==
--- NOTE | ~2024-09-21 | CT_ITS ---
CLINICAL HISTORY: F17.200 - Nicotine dependence, unspecified, uncomplicated CT abdomen and pelvis with and without contrast Comparison: CT/SR - CT ABDOMEN PELVIS WO IV CON - 06/20/24 23:07 EST Findings: The lung bases are clear. Very small hiatal hernia. Benign renal cysts are present bilaterally. There is no urinary calculus or obstructive uropathy. Ureters are normal in course and in caliber. The bladder is somewhat underdistended but appears within normal limits. The prostate gland is somewhat lobular and borderline prominent The liver, gallbladder, spleen, splenules, right adrenal gland and pancreas are unremarkable. The left adrenal gland demonstrates a 5 mm nodule measuring less than 10 Hounsfield units on the noncontrast study, consistent with a benign adenoma. No bowel obstruction or free air. Mild fecal retention. Scattered diverticulosis. No pneumatosis, free air, abscess or adenopathy. No acute osseous finding. Very small bilateral fat containing inguinal hernias. Impression: No urinary calculus, obstructive uropathy or suspicious urinary tract lesion Incidental findings as detailed This document has been electronically signed by: Tin Mendez MD on 09/21/2024 18:32:28
--- OUTSIDE RECORDS SUMMARY | 2024-09-21 09:52 | XMS_ITS | Clinical Summary ---
Author Organization [employer] Address [address] [facility] [address]t [place] [address] Care Team Providers Care Bone Char Operator Name Role Phone Unavailable Primary Care Provider [...] ?? Esteban GUTHRIE et al. CORKY. 2013;310(19): 6715-1665 ?? (http://[employer].NoteVault/faq/[email or web address]) Non-HDL Cholesterol 125 <130 mg/dL (calc) FOUNDATION [...] [facility] [address] from Last 3 Months or Most Recently Relevant to Health Maintenance Insurance [facility] C3
--- OUTSIDE RECORDS SUMMARY | 2024-09-21 09:52 | XMS_ITS | Clinical Summary ---
Author Organization [address] [facility] Address [address] [place] [address] Phone Care Team Providers Care Facility Specialist Name Role Phone Sadafashwini Jayashree RASHEED Primary Care Provider [phone] Active Problems Problem Noted Date Diagnosed Date Cervicalgia 06/06/2024 Lumbar radiculopathy 06/06/2024 Encounters Date Type Department Care Team Description 07/06/2024 11:30 AM EST Treatment [facility] [address] [phone] Dothan, Cari, PT Cervicalgia (Primary Dx); Lumbar radiculopathy 07/04/2024 12:30 PM EST Treatment [address] [phone] Dante Virgen, LIME BOILER Cervicalgia (Primary Dx); Lumbar radiculopathy 06/29/2024 12:30 PM EST Treatment [address] [phone] Tabatha, Cari, PT Cervicalgia (Primary Dx); Lumbar radiculopathy 06/27/2024 12:30 PM EST Treatment [address] [phone] Tabatha, Cari, PT Cervicalgia (Primary Dx); Lumbar [...] weeks General No Cari Mays, PT Note: Prestidigitator Goals 1. Patient will be independent with [...] limitation. Insurance MEDICAID - [place] Care Teams Facility Specialist Relationship Specialty Start Date End Date Jayashree Stevenson NP PCP - General Family Medicine 06/02/24
--- OUTSIDE RECORDS SUMMARY | 2024-09-21 09:52 | XMS_ITS ---
Author Organization [facility] Address [address] [place], [place] [phone] Care Team Providers Care Roll Examiner Name Role Phone Jayashree Stevenson Primary Care Provider Dora Rebolledo Unavailable [phone] Reason For Referral Reason Renal and Transplant [facility], [address] [place] [address] [address] [address] P: [phone] F: [phone] evaluate for Bilateral renal cyst and left adrenal nodule probably representing adenoma seen in abd-pelvis CT during ED visit for abd/flank pain Diagnosis 1 Cyst of kidney, acqu ired (N28.1) Referral Organization [facility] Referring Provider First Name Jayashree Referring Provider Last Name Elva Referring Provider Speciality Nurse Prac titioner Ref[facility]erred Provider Specialty Nephrology General Notes sent page 10 of [facility] ED visit notesCorinna Paris 06/24/2024 01:13:08 PM > Faxed to R&T associatesCorinna Paris 06/28/2024 11:49:06 AM > Pt. scheduled 07/14/24 @2:[address] Mart located at [address] [place] [address] Chi Hoffman MA, Rivera, Aracelis 07/06/2024 01:33:59 PM > pt is aware of apptEdvin Aracelis 07/26/2024 11:18:35 AM > requested notes from [facility] MR-Donna Monica 07/28/2024 09:07:32 AM >Pt no showed for appt 07/14. Referral Priority Routine Referral Appointment Date 07/14/2024 REASON FOR VISIT appt Encounters Encounter Location Date Provider Diagnosis [facility] [address] [place] [phone] 06/21/2024 Eddieliza Hongionan Cyst of kidney, acquired N28.1 Assessments Encounter Date Diagnosis (ICD Code) Assessment Notes Treatment Notes Treatment Clinical Notes 06/21/2024 Cyst of kidney, acquired (ICD-10 - N28.1) Plan Of Treatment Referrals Referral Date Details 06/24/2024 06/24/2024, [facility], [address] [address] P: [phone] F: [phone] evaluate for Bilateral renal cyst and left adrenal nodule probably representing adenoma seen in abd-pelvis CT during ED visit for abd/flank pain, [facility] [place] Next Appt Details Provider Name:Nursing [facility], 11/21/2024 09:00:00 AM, [address] [place] [address], [phone], Progress Notes * Eliezer SCHULTEDOB: [birth year] (48 yo M)Acc No.[id number]:06/21/2024 Patient:?Eliezer SCHULTE :1975???Age:48 Y???Sex:Male Address:[address] [place] [address], [phone] Subjective: * Chief Complaints: * ???Appt * Medical History:? * Surgical History:? * Hospitalization/Major Diagno stic Procedure:? * Medications:? Objective: * Vitals:? * Physical Examination:? Assessment: * Assessment: 1.?Cyst of kidney, acquired - N28.1 (Primary)??? Plan: * Treatment: * Procedure Codes:? * true * Date:? Generated for Nicole licea/Ana/eTransmitting on:?09/21/2024 09:52 AM EST Consultation Request Notes Referral Date Referring Provider Referred Provider Not 06/24/2024 Casionan, Eddieliza [facility] [place], [address] [address], [facility] [address] P: [phone] F: [phone] evaluate for Bilateral renal cyst and left adrenal nodule probably representing adenoma seen in abd-pelvis CT during ED visit for abd/flank pain
--- OUTSIDE RECORDS SUMMARY | 2024-09-21 09:52 | XMS_ITS | Encounter Summary ---
Author Organization [employer] Address [address] [facility] 7t [place] [address] Care Team Providers Care Supervisor Audit Clerks Name Role Phone Belem Howell Primary Care Provider [phone] Encounter Details Date Type Department Care Team (Late st Contact Info) Description 08/20/2023 Telephone [facility] MEDICINE [address] [place], [place] [phone] Belem Howell ANP [address] [place], [place] [phone] Social History Tobacco Use Types Packs/Day Years [...] to the patient asking him to call [facility] med records so we could discuss [...] on filedocumented in this encounter Care Teams Supervisor Audit Clerks Relationship Specialty Start Date End Date Belem Howell ANP [address] [place] [address] PCP - General Family Medicine 04/09/22 09/03/23 documented as of this encounter
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
--- OUTSIDE RECORDS SUMMARY | 2024-09-21 09:52 | XMS_ITS | Patient Health Record ---
Author Organization [facility] Address [address], [place] [id number] Care Team Providers Care System Manager Name Role Phone Rupal Galaviz Primary Care Provider Dora Rebolledo Unavailable [phone] [facility], Nursing Unavailable [phone] Allergies No Known Allergies Results Component Value Reference Range Notes FECAL GLOBIN BY IMMUNOCHEMIS TRY Reviewed date:05/20/2024 09:55:51 AM Interpretation:Negative Performing Lab:NL2, [facility] [id number] Anthony Manzanares Notes/Report: FASTING: UNKNOWN FECAL GLOBIN BY IMMUNOCHEMISTRY SEE NOTE FECAL GLOBIN BY IMMUNOCHEMISTRY Micro Number: [id number] Test Status: Final Specimen Source: Insu () [...] date:05/10/2024 09:20:42 AM Interpretation:Normal Performing Lab: Notes/Report: [employer], a member of [address] [address] Director Of Sustainability Programs - Kelly Vazquez MD GLYCATED HEMOGLOBIN A1C [...] Reviewed date:05/13/2024 10:50:15 AM Interpretation:Negative Performing Lab:NL2, [facility] [address] [place], [place] [id number] Anthony Norriselena Notes/Report: NON-FASTING QUANTIFERON(R)-TB GOLD PLUS, [...] T-lymphocytes. For additional information, please refer to [email or web address] (This link is being provided for informational/ [...] Diagnosis 1 Low income (Z59.6) Referral Organization [facility] Referring Provider First Name Nursing Referring Provider Last Name [facility] Referring Provider Speciality Family Pra ctice Referred Organization [facility] Referred Address [address] [place] [id number], Referred Provider Specialty Dental Gener al Practice Referral Priority Routine Reason evaluate and treat f or cervicalgia and lumbar pain Diagnosis 1 Radiculopathy, lumba r region (M54.16) Diagnosis 2 Cervicalgia (M54.2) Referral Organization [facility] Referring Provider First Name Rupal Referring Provider Last Name Elva Referring Provider Speciality Nurse Prac titioner Referred Provider Geraldine physical therapy supervisor krupa Referred Provider Specialty Physiotherap y General Notes Antonella Pardo 07:59:30 AM > notes faxed to [phone], Antonella Pardo 06/01/2024 10:27:38 AM > appt scheduled for 06/03 @1:00pm, Antonella Pardo 06/30/2024 09:56:08 AM >requested notesCorinna Paris 07/07/2024 09:20:05 AM > pt. attended, notes to scan Referral Priority Routine Referral Appointment Date 06/03/2024 Reason [facility], [address], [facility] [address] P: [phone] F: [phone] evaluate for Bilateral renal cyst and left adrenal nodule probably representing adenoma seen in abd-pelvis CT during ED visit for abd/flank pain Diagnosis 1 Cyst of kidney, acqu ired (N28.1) Referral Organization [facility] Referring Provider First Name Rupal Referring Provider Last Name Elva Referring Provider Speciality Nurse Silvana lutz [facility] Specialty Nephrology General Notes sent page 10 of [facility] ED visit Corinna escobar Paris 06/24/2024 01:13:08 PM > Faxed to R&T associatesCorinna Paris 06/28/2024 11:49:06 AM > Pt. scheduled 07/14/24 @2:[address] Mart located at [address] [place] [address] Dr Garcia [facility] 07/06/2024 01:33:59 PM > pt is aware of appt, Antonella Pardo 07/26/2024 11:18:35 AM > requested notes from [facility] MR-Donna Monica 07/28/2024 09:07:32 AM [...] Status W/U Status Risk Notes Problem Thyrotoxicosis (33873299) Thyrotoxicosis, unspecified without thyrotoxic crisis or storm (E05.90) Active confirmed Problem Overweight (651021944) Overweight (E66.3) Active confirmed Problem Mixed hyperlipidemia (092331507) Mixed hyperlipidemia (E78.2) Active confirmed Problem Lumbar radiculopathy (395225890) Radiculopathy, lumbar region (M54.16) Active confirmed Problem Cervicalgia (13500116) Cervicalgia (M54.2) Active confirmed Problem Low income (583273201) Low income (Z59.6) Active confirmed Problem Nondependent opioid abuse in remission (988130042) Opioid abuse, in remission (F11.11) Active confirmed Problem BMI 25-29 - overweight (765581143) Body mass index [BMI] 29.0-29.9, adult (Z68.29) Active confirmed Problem Sheltered homelessness (806006015929138) Sheltered homelessness (Z59.01) Active confirmed Problem Anxiety disorder (494592661) Anxiety disorder, unspecified (F41.9) Inactive confirmed Problem Psychophysiologic insomnia (191328716) Psychophysiologic insomnia (F51.04) Inactive confirmed Problem Homelessness (89348529) Homelessness (Z59.0) Inactive confirmed Vital Signs Temperature 97.5 degrees Fahrenheit 05/09/2024 Blood pressure diastolic 87 05/09/2024 Oximetry 98 05/09/2024 Height 72 in 05/23/2024 Blood pressure systolic 131 05/09/2024 Weight 220.2 lbs 05/09/2024 BMI 29.86 kg/m2 05/09/2024 Encounters Encounter Location Date Provider Diagnosis [address] [id number] 04/08/2024 Nursing [facility] Encounter for screening for COVID-19 Z11.[address] [id number] 05/09/2024 Rupal Galaviz Encounter for general adult [...] Cervicalgia M54.2 and Sheltered homelessness Z59.01 [facility] [address] [place] [address] [facility] [place] [phone] 05/23/2024 Edosbaldo Galaviz Person consulting for explanation of examination or test findings Z71.2 ; Thyrotoxicosis, unspecified without thyrotoxic crisis or storm E05.90 ; Encounter for screening for COVID-19 Z11.52 and Mixed hyperlipidemia E78.2 [facility] [address] [place] [phone] 06/21/2024 Rupal Galaviz Cyst of kidney, acquired [...] phone intake to reestablish medical care at [facility], pt is not interested in receiving MH services and he want Dental care from [facility]. pt is renting an apartment with his partner at [facility]. pt is working but he need [...] PROFILE 05/09/2024 Next Appt Details Provider Name:Nursing [facility], 11/21/2024 09:00:00 AM, [address] [facility], [place], [place], [phone], Insurance Providers Payer Name Payer Address Payer Phone Subscriber Number Group Number Insured Name Patient Relationship to Insured Coverage Start Date Coverage End Date [place] Medicaid C3 [address] [place], [place] [id number] Eliezer Schulte Self - patient is the insured 0 Medications Administered Medication Instructions Date of Administration Dosage Notes Naltrexone extended-release injectable suspension 05/22/2020 380 mg [facility] [id number] Medical (General) History Medical History History ICD Code Opiate dependence Depression Anger Issues Surgical History Surgery Date(Month/Year) Back surgery - Buldging disc 1998 Hospitalization History Reason Date(Month/Year) [facility] - Detox 03/2020
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
[2024-09-21] MEDS: iohexoL 350 MG/ML 100 ML INFUS..BTL IV (10:06)
== END 2024-09-21 09:02 | disposition home or self-care (01) ==
LOC: HO.CT 09:01
PROVIDERS: PCP Nurse Practitioner; Visit Provider Nurse Practitioner Family
DX: R31.0 Gross hematuria (principal); F17.200 Nicotine dependence, unspecified, uncomplicated
CPT/HCPCS: 74178; Q9967

== ENCOUNTER → 2024-09-21 09:05 | Outpatient (BNV) | payer MEDICAID, SELFPAY | PROVIDERS: PCP Nurse Practitioner; Visit Provider Radiology Vascular & Interventional Radiology | DX: R31.0 Gross hematuria (principal); N28.1 Cyst of kidney, acquired | CPT/HCPCS: 74178 ==

== ENCOUNTER 2024-10-07 08:43 | Outpatient (AMB) | payer MEDICAID, SELFPAY ==
--- NOTE | 2024-10-07 08:48 | A.OFFVIS_ITS ---
Intake Visit Reasons: CT follow up Intake Note: Pt presents to the office today for a CT follow up/Cystoscopy Cystoscopy: Lot:[id number] Exp:11/25/26 Allergies No Known Allergies Allergy (Mild, Verified 10/07/24 08:48) NOT APPLICABLE HPI Comments Details: Eliezer is a pleasant male. He is a patient of . He is seen for the following urologic conditions - gross hematuria Gross hematuria in setting of nicotine dependent Initial UA 2+ Initial presentation with gross hematuria through ER Imaging - CT Urogram The prostate gland is somewhat lobular and borderline prominent Cystoscopy with trabeculation +1, suggestive possible glomerulation Has nocturia x3 Trial daily tadalafil PFSH Social History Substance Use Type: Crack/Cocaine Review of Systems Const Denies chills and Denies fever(s) Card Reports no additional complaints and Denies syncope Resp Denies cough GI Denies abdominal pain and Denies heartburn Reports as per HPI and Denies change in libido Neuro Denies syncope Psych Denies change in libido Endo Denies change in libido Physical Exam Const General: cooperative, healthy appearing, comfortable and no acute distress Orientation/consciousness: patient oriented x3 HEENT Face and sinus: Yes normal facial exam Mouth: moist mucous membranes Neck Neck: Yes normal visual inspection, Yes full ROM and Yes trachea midline Chest Chest palpation & inspection: normal inspection of the chest Resp Effort & Inspection: normal respiratory effort, able to speak in complete sentences and no respiratory distress GI Inspection: Yes normal to inspection Back/Spine/Pelvis Cervical Spine: normal cervical lordosis Thoracic/Lumbar Spine: thoracic and lumbar spine normal to inspection Skin General skin exam: no rashes or lesions noted Neuro General: patient oriented x3, gait normal, tone normal and moves all extremities Extrem General: Yes normal to inspection and Yes capillary refill normal Office Procedures Cystoscopy Consent Discussed risk and benefit or proposed procedure with the patient. Information consent for procedure given to the patient. Discussed technical aspects, risks, benefits and alternatives in full. Addressed all of the patient's questions and concerns regarding the procedure. The patient demonstrated knowledge and understanding. They wish to proceed with this procedure. Preparation The patient was prepped in the usual manner. A dba developer was present and in the room. Genitalia was prepped with betadine solution in a sterile manner. Lidocaine Jelly 2% was placed into the urethra and 16Fr flexible Olympus cystoscope was inserted into the meatus after adequate lubrication. Procedure Cystoscopy performed using a disposable Urovue digital 16 Belarusian cystoscope. Meatus normal position Urethra NORMAL Prostatic Urethra unremarkable Bladder examination with retroflexion of cystoscope Bladder Orifices normal shape and position Bladder Capacity median Trabeculations -- Cellule Formation - Diverticulum Formation - Mucosal Erythema - Bladder Tumor --- [id number]-Bowqmituch DISPOSABLE SCOPE URO-G FLEXIBLE SCOPE Procedure code (CPT) selection complete Office Meds lidocaine HCl 2 % mucosal jelly in applicator Performing Provider: Chino Funes MD Performing Location: [facility] Administered by: Tom King LPN on 10/07/24 09:33 Dose Route Admin Location Dispensed Lot Number Expiration Date [facility] Mass Spectrometry Manager 10 mL intra-urethral 10 mL nitrofurantoin monohydrate/macrocrystals 100 mg capsule Performing Provider: Chino Funes MD Performing Location: [facility] Administered by: Tom King LPN on 10/07/24 09:33 Dose Route Admin Location Dispensed Lot Number Expiration Date [place] Mass Spectrometry Manager 100 mg PO 1 cap Results AMB Urinalysis, Automated UA Leukoctes 0 Sonny/uL Last Edit by Hattie Schmid CMA on 10/07/24 09:25 UA Nitrite Negative Last Edit by Hattie Schmid CMA on 10/07/24 09:25 UA Urobilinogen 0.2 mg/dL Last Edit by Hattie Schmid CMA on 10/07/24 09:25 UA Protein 30 mg/dL Last Edit by Hattie Schmid CMA on 10/07/24 09:25 UA pH 5.5 Last Edit by Hattie Schmid CMA on 10/07/24 09:25 UA Blood 25 Harry/uL Last Edit by Hattie Schmid CMA on 10/07/24 09:25 UA Specific [place] 1.030 Last Edit by Hattie Schmid CMA on 10/07/24 09:25 UA Ketone Positive Last Edit by Hattie Schmid CMA on 10/07/24 09:25 UA Bilirubin 1 mg/dL Last Edit by Hattie Schmid CMA on 10/07/24 09:25 UA Glucose 0 mg/dL Last Edit by Hattie Schmid CMA on 10/07/24 09:25 Results Reviewed Results Reviewed: Laboratory Last Values Urine pH (Auto) 5.5 10/07/24 09:24 Specific [place] (Auto) 1.030 10/07/24 09:24 Urine Protein (Auto) 30 mg/dL 10/07/24 09:24 Glucose (UA)(Auto) 0 mg/dL 10/07/24 09:24 Urine Ketones (Auto) Positive 10/07/24 09:24 Urine Blood (Auto) 25 Harry/uL 10/07/24 09:24 Urine Nitrite (Auto) Negative 10/07/24 09:24 Urine Bilirubin (Auto) 1 mg/dL 10/07/24 09:24 Urine Urobilinogen (Auto) 0.2 mg/dL 10/07/24 09:24 Leukocyte Esterase (Auto) 0 Sonny/uL 10/07/24 09:24 Assessment & Plan Assessment & Plan (1) Urinary urgency: Code(s): R39.15 - Urgency of urination Category: Medical (2) Bladder outlet obstruction: Code(s): N32.0 - Bladder-neck obstruction Category: Medical Plan Trial tadalafil three-month Orders: Orders AMB Cystoscopy 10/07/24 R31.0 - Gross hematuria AMB Urinalysis Automated 10/07/24 R31.0 - Gross hematuria Medications: New tadalafil MARIANO N Group [facility] [address] [id number] 5 mg PO DAILY 90 tabs 0RF sexual activity 90 days N32.0 - Bladder- neck obstruction Patient Instructions: This note is constructed using voice recognition software. While every effort has been made to ensure accuracy hand rigger errors may have been included. Imaging studies, laboratory and physical exam results were discussed and reviewe d in detail. No major barriers to patient understanding were identified. An opportunity to ask questions regarding the treatment plan was provided. All questions were answered. The patient expressed understanding and agreement with the above treatment plan. The patient is aware they should contact our office by phone for worsening of their current condition or the appearance of new urologic symptoms. Compliance is encouraged with any medications and followup testing that is ordered. It is a privilege to participate in the urologic care of your patient. If you have any questions or concerns regarding treatment for the above conditions, or other urologic issues, please do not hesitate to contact me. The office telephone contact is [phone]. Sincerely, Dr Chino Funes MD, [facility] - Urology Compassionate Specialist Care for the Genitourinary System Coding Level of Care Code Est Pt Level 4 (31012) Diagnoses Urinary urgency R39.15 Bladder outlet obstruction N32.0 CPT Codes Cystoscopy - CPT: 09706-Fprscxnnga ([id number])
== END 2024-10-07 09:55 | disposition home or self-care (01) ==
PROVIDERS: Visit Provider Urology
DX: R39.15 Urgency of urination (principal); N32.0 Bladder-neck obstruction
CPT/HCPCS: 99214

== ENCOUNTER → 2024-10-07 08:43 | Outpatient (BNVA) | payer MEDICAID, SELFPAY | PROVIDERS: Visit Provider Urology | DX: R31.0 Gross hematuria (principal); R39.15 Urgency of urination; N32.0 Bladder-neck obstruction; F17.210 Nicotine dependence, cigarettes, uncomplicated | CPT/HCPCS: 52000; 99212 ==

== ENCOUNTER 2025-01-10 11:46 | Outpatient (AMB) | payer MEDICAID, SELFPAY ==
--- NOTE | 2025-01-10 11:49 | A.OFFVIS_ITS ---
Intake Visit Reasons: 3m follow up Intake Note: Patient presents to office today for 3m follow up Urology Medications: none Blood Thinner: none Antibiotic Allergies:None PVR:0ml Balance Truing Inspector Required: No Accompanied by: Self / Same As Patient Allergies No Known Allergies Allergy (Mild, Verified 01/10/25 13:10) NOT APPLICABLE Medication List - Last Reconciled 01/10/25 by BRYON Garnett HPI Comments Details: Eliezer is a very pleasant 49-year-old male patient. He presents to the office today for follow-up of his gross hematuria. In discussion with the patient today he reports to be doing and feeling well. He denies having had any other episodes of gross hematuria since his ER visit late last year 06/2024. Previous workup has included an in office cystoscopy with Dr. Funes 10/11 that noted: The prostate gland is somewhat lobular and borderline prominent Cystoscopy with trabeculation +1, suggestive possible glomerulation At which time recommendations were made for low-dose Cialis for bladder stability. He reports he has since discontinued the medication as he had been experiencing headaches and back pain. Previous noncontrast CT study 07/12 noted the kidneys are normal in size, shape, and attenuation. No hydronephrosis or renal calculi seen. No perinephric stranding. There are benign appearing bilateral renal cysts. The bladder is unremarkable. In office urinalysis results reviewed with the patient today 2+ microscopic hematuria. He does report a longstanding history of nicotine dependence for over 20 years. He reports smoking approximately 1 pack per day however most recently is trying to limit in quit nicotine dependence therefore 1 pack is lasting him 2 days. He reports episodes of nocturia he had been experiencing have subsided. He does not feel he has any bothersome urinary issues or concerns at this time. Will continue with surveillance monitoring. He deniesm urinary urgency, urinary frequency, incontinence, nocturia, dysuria, foul smelling urine, changes to urinary stream, flank pain, fever, and or chills. He is happy with his current voiding. Urine cytology: 09/13 Negative for high-grade urothelial carcinoma. 08/13 Atypical urothelial cells. [facility] Social History Substance Use Type: Crack/Cocaine Review of Systems Const All systems reviewed & are unremarkable except as noted in HPI and below Physical Exam Const General: cooperative, healthy appearing, comfortable, no acute distress, well developed, alert and awake Orientation/consciousness: patient oriented x3 Limitations: no limitations HEENT Head: Yes normal to inspection, Yes normocephalic and Yes atraumatic Ears: hearing grossly normal bilaterally Eyes General: appearance normal, both eyes and all related structures Neck Neck: Yes normal visual inspection and Yes trachea midline Chest Chest palpation & inspection: normal inspection of the chest Resp Effort & Inspection: normal respiratory effort and able to speak in complete sentences Cardio Rate: regular rate GI Inspection: Yes normal to inspection General: Yes no CVA tenderness Back/Spine/Pelvis Back: no CVA tenderness Skin General skin exam: no rashes or lesions noted Neuro General: patient oriented x3 Extrem General: Yes normal to inspection Psych Appearance: grossly normal and well kempt Mental Status: mental status grossly normal Speech and movement: Normal speech and movement present and Clear speech present Affect: normal affect Attitude: cooperative Thought process: Normal thought process present Thought content: Normal thought content present Insight: Fair insight present (Psych) Judgement: Fair judgement present (Psych) Assessment & Plan Assessment & Plan (1) Gross hematuria: Code(s): R31.0 - Gross hematuria Category: Medical Plan In office urinalysis results reviewed with the patient today; as noted above; will send for urine cytology. He currently denies any bothersome urinary issues or concerns. He reports be happy with current voiding parameters. We discussed the importance of limiting/quitting nicotine dependence for overall health and well-being. Will continue with surveillance monitoring. Will discontinue Cialis We discussed the importance of adequate hydration relation to lower urinary tract symptoms as well as overall health and well-being. Follow-up in 3-6 months; or sooner with any issues, concerns, and or questions. Orders: Orders Urine Cytology Today R31.0 - Gross hematuria AMB Urinalysis Automated Today Z13.9 - Encounter for screening, unspecified Patient Instructions: The patient had an opportunity to ask questions regarding the treatment plan. All questions were answered. Physical exam, labs, and imaging were discussed and reviewed in detail. As well as risks, benefits, and discussion of treatment choices. No major barriers to understanding were identified. The patient expressed understanding and agreement with the above treatment plan. The patient was made aware they should contact our office by phone for worsening of their current condition, the appearance of new symptoms, or with any questions or concerns. Compliance is encouraged with any medications and follow up testing that is ordered. It is a privilege to be allowed the opportunity to participate in? your urological care.? Again, if you have any questions or concerns If you have any questions or concerns please do not hesitate to contact me. The office is [phone]. This note is constructed using voice recognition software. While every effort has been made to ensure accuracy preschool substitute teacher errors may have been included. Yours sincerely, BRYON Garnett Coding Level of Care Code Est Pt Level 3 (62769) Diagnoses Gross hematuria R31.0
--- OUTSIDE RECORDS SUMMARY | 2025-01-10 13:28 | XMS_ITS | Patient Health Record ---
Author Organization [facility] Address [address] [place], [place] [id number] Care Team Providers Care Locomotive Crane Operator Helper Name Role Phone Rupal Galaviz Primary Care Provider Dora Rebolledo Unavailable [phone] [facility], Nursing Unavailable [phone] Allergies No Known Allergies Results Component Value Reference Range Notes FECAL GLOBIN BY IMMUNOCHEMIS TRY Reviewed date:05/20/2024 09:55:51 AM Interpretation:Negative Performing Lab:NL2, [facility] [address] Anthony Manzanares Notes/Report: FASTING: UNKNOWN FECAL GLOBIN BY IMMUNOCHEMISTRY SEE NOTE FECAL GLOBIN BY IMMUNOCHEMISTRY Micro Number: [id number] Test Status: Final Specimen Source: Insu () [...] date:05/10/2024 09:20:42 AM Interpretation:Normal Performing Lab: Notes/Report: [employer], a member of [address] [address] Support Service Tech - Kelly Vazquez MD GLYCATED HEMOGLOBIN A1C [...] Reviewed date:05/13/2024 10:50:15 AM Interpretation:Negative Performing Lab:NL2, [facility] [address] [place], [place] [address] Anthony Norriselena Notes/Report: NON-FASTING QUANTIFERON(R)-TB GOLD PLUS, [...] T-lymphocytes. For additional information, please refer to https://education.Appoxee.The TechMap/faq/ARL966 (This link is being provided for informational/ [...] Diagnosis 1 Low income (Z59.6) Referral Organization [facility] Referring Provider First Name Nursing Referring Provider Last Name [facility] Referring Provider Speciality Family Pra ctice Referred Organization [facility] Referred Address [address] [place] [phone], Referred Provider Specialty Dental Gener al Practice Referral Priority Routine Reason evaluate and treat f or cervicalgia and lumbar pain Diagnosis 1 Radiculopathy, lumba r region (M54.16) Diagnosis 2 Cervicalgia (M54.2) Referral Organization [facility] Referring Provider First Name Rupal Referring Provider Last Name Elva Referring Provider Speciality Nurse Prac titioner Referred Provider Geraldine physical therapy director krupa Referred Provider Specialty Physiotherap y General Notes Antonella Pardo 07:59:30 AM > notes faxed to [phone], Antonella Pardo 06/01/2024 10:27:38 AM > appt scheduled for 06/03 @1:00pm, Antonella Pardo 06/30/2024 09:56:08 AM >requested notesCorinna Paris 07/07/2024 09:20:05 AM > pt. attended, notes to scan Referral Priority Routine Referral Appointment Date 06/03/2024 Reason [facility], [address], [facility] [address] P: [phone] F: [phone] evaluate for Bilateral renal cyst and left adrenal nodule probably representing adenoma seen in abd-pelvis CT during ED visit for abd/flank pain Diagnosis 1 Cyst of kidney, acqu ired (N28.1) Referral Organization [facility] Referring Provider First Name Rupal Referring Provider Last Name Elva Referring Provider Speciality Nurse Silvana lutz [facility] Specialty Nephrology General Notes sent page 10 of [facility] [place] Corinna escobar Paris 06/24/2024 01:13:08 PM > Faxed to R&T associatesCorinna Paris 06/28/2024 11:49:06 AM > Pt. scheduled 07/14/24 @2:[address] Mart located at [address] [place] [address] Dr [facility] 07/06/2024 01:33:59 PM > pt is aware of appt, Antnoella Pardo 07/26/2024 11:18:35 AM > requested notes from [facility] MR-Donna Monica 07/28/2024 09:07:32 AM >Pt [...] Status W/U Status Risk Notes Problem Thyrotoxicosis (55282852) Thyrotoxicosis, unspecified without thyrotoxic crisis or storm (E05.90) Active confirmed Problem Overweight (932539984) Overweight (E66.3) Active confirmed Problem Mixed hyperlipidemia (502126190) Mixed hyperlipidemia (E78.2) Active confirmed Problem Lumbar radiculopathy (700977479) Radiculopathy, lumbar region (M54.16) Active confirmed Problem Cervicalgia (36607514) Cervicalgia (M54.2) Active confirmed Problem Low income (918815962) Low income (Z59.6) Active confirmed Problem 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) Opioid abuse, in remission (F11.11) Active confirmed Problem BMI 25-29 - overweight (454273421) Body mass index [BMI] 29.0-29.9, adult (Z68.29) Active confirmed Problem Sheltered homelessness (597691944248174) Sheltered homelessness (Z59.01) Active confirmed Problem Anxiety disorder (825866935) Anxiety disorder, unspecified (F41.9) Inactive confirmed Problem Psychophysiologic insomnia (330292977) Psychophysiologic insomnia (F51.04) Inactive confirmed Problem Homelessness (70464772) Homelessness (Z59.0) Inactive confirmed Vital Signs Temperature 97.5 degrees Fahrenheit 05/09/2024 Blood pressure diastolic 87 05/09/2024 Oximetry 98 05/09/2024 Height 72 in 05/23/2024 Blood pressure systolic 131 05/09/2024 Weight 220.2 lbs 05/09/2024 BMI 29.86 kg/m2 05/09/2024 Encounters Encounter Location Date Provider Diagnosis [address] [id number] 04/08/2024 Nursing [facility] Encounter for screening for COVID-[address] [id number] 05/09/2024 Rupal Galaviz Encounter for general adult [...] Cervicalgia M54.2 and Sheltered homelessness Z59.01 [facility] [address] [place] [address] [facility] [place] [phone] 05/23/2024 Edosbaldo Galaviz Person consulting for explanation of examination or test findings Z71.2 ; Thyrotoxicosis, unspecified without thyrotoxic crisis or storm E05.90 ; Encounter for screening for COVID-19 Z11.52 and Mixed hyperlipidemia E78.2 [facility] [address] [place] [phone] 06/21/2024 Rupal Galaviz Cyst of kidney, acquired N28.1 Assessments Encounter Date Diagnosis (ICD Code) Assessment Notes Treatment Notes Treatment Clinical Notes Section Notes 04/08/2024 Encounter for screening for COVID-19 [...] intake to reestablish medical care at [facility], pt is not interested in receiving services and he want Dental care from [facility]. pt is renting an apartment with his partner at [facility]. pt is working but he need to be seen by a provider for a CPE. pt didnt address any urgent medical needs a the moment. Time spent in visit: 40 minutes 05/09/2024 Other Labs drawn per protocol, no difficulties, sent to lab, pt to RTC for f/u 05/23/2024 Other Time spent in visit: 8 minutes Plan Of Treatment Pending Test Test Name Order Date HEPATITIS A,B,C PROFILE 05/09/2024 Future Test Test Name Order Date LIPID PROFILE 11/22/2024 THYROID AUTOANTIBODIES 11/22/2024 THYROID PROFILE 11/22/2024 THYROID STIMULATING IMMUNOGLOB 5 Insurance Providers Payer Name Payer Address Payer Phone Subscriber Number Group Number Insured Name Patient Relationship to Insured Coverage Start Date Coverage End Date [place] C3 [address] [place], [place] [id number] Eliezer Schulte Self - patient is the insured 0 Medications Administered Medication Instructions Date of Administration Dosage Notes Naltrexone extended-release injectable suspension 05/22/2020 380 mg [facility] [id number] Medical (General) History Medical History History ICD Code Opiate dependence Depression Anger Issues Surgical History Surgery Date(Month/Year) Back surgery - Buldging disc 1998 Hospitalization History Reason Date(Month/Year) [facility] - Detox 03/2020
== END 2025-01-10 12:32 | disposition home or self-care (01) ==
LOC: HO.HUSH 11:46
PROVIDERS: Visit Provider Nurse Practitioner Family
DX: R31.0 Gross hematuria (principal); Z13.9 Encounter for screening, unspecified
CPT/HCPCS: 99213

== ENCOUNTER 2025-01-10 11:46 | Outpatient (REF) | payer MEDICAID, SELFPAY ==
[2025-01-10 16:40] LABS: Urine Cytology See Pathology rpt
== END 2025-01-10 11:47 | disposition home or self-care (01) ==
LOC: HO.LAB 11:46
PROVIDERS: Visit Provider Nurse Practitioner Family
DX: R31.0 Gross hematuria (principal)
CPT/HCPCS: 81003; 88112; 99212

== ENCOUNTER 2025-05-08 11:25 | Outpatient (AMB) | payer MEDICAID, SELFPAY ==
--- NOTE | 2025-05-08 11:25 | A.OFFVIS_ITS ---
Intake Visit Reasons: 4M follow up PVR Intake Note: patient presents today for: 4m follow up urology medications: none blood thinners: none today's PVR: 19mls Emergency Medicine Nurse Practitioner Required: Yes Emergency Medicine Nurse Practitioner Services: Emergency Medicine Nurse Practitioner Present Emergency Medicine Nurse Practitioner Name: Marija Accompanied by: Self / Same As Patient Allergies No Known Allergies Allergy (Mild, Verified 05/08/25 12:01) NOT APPLICABLE Medication List - Last Reconciled 05/08/25 by BRYON Garnett No Known Home Meds HPI Comments Details: Eliezer is a very pleasant 49-year-old male patient. He presents to the office today for follow-up of his gross hematuria. In discussion with the patien t today he reports to be doing and feeling well. He denies having had any other episodes of gross hematuria since his ER visit late last year 06/2024. Previous workup has included an in office cystoscopy with Dr. Funes 10/11 that noted: The prostate gland is somewhat lobular and borderline prominent Cystoscopy with trabeculation +1, suggestive possible glomerulation At which time recommendations were made for low-dose Cialis for bladder stability. He reports he has since discontinued the medication as he had been experiencing headaches and back pain. Previous noncontrast CT study 07/12 noted the kidneys are normal in size, shape, and attenuation. No hydronephrosis or renal calculi seen. No perinephric stranding. There are benign appearing bilateral renal cysts. The bladder is unremarkable. In office urinalysis results reviewed with the patient today 1+ microscopic hematuria which is decreased since previous urinalysis. He does have a history of nicotine dependence for over 20 years. He reports smoking approximately 1 pack per day however most recently is trying to limit in quit nicotine dependence therefore 1 pack is lasting him 2-4 days. He does not feel he has has had any bothersome urinary issues or concerns at this time. Will continue with surveillance monitoring. He denies urinary urgency, urinary frequency, incontinence, nocturia, dysuria, foul smelling urine, changes to urinary stream, flank pain, fever, and or chills. He is happy with his current voiding. Urine cytology: 09/13 Negative for high-grade urothelial carcinoma. 08/13 Atypical urothelial cells. 01/11 Negative for high-grade urothelial carcinoma. [facility] Social History Substance Use Type: Crack/Cocaine Review of Systems Const All systems reviewed & are unremarkable except as noted in HPI and below Physical Exam Const General: cooperative, healthy appearing, comfortable, no acute distress, well developed, alert and awake Orientation/consciousness: patient oriented x3 Limitations: no limitations HEENT Head: Yes normal to inspection, Yes normocephalic and Yes atraumatic Ears: hearing grossly normal bilaterally Eyes General: appearance normal, both eyes and all related structures Neck Neck: Yes normal visual inspection and Yes trachea midline Chest Chest palpation & inspection: normal inspection of the chest Resp Effort & Inspection: normal respiratory effort and able to speak in complete sentences Cardio Rate: regular rate GI Inspection: Yes normal to inspection General: Yes no CVA tenderness Back/Spine/Pelvis Back: no CVA tenderness Skin General skin exam: no rashes or lesions noted Neuro General: patient oriented x3 Extrem General: Yes normal to inspection Psych Appearance: grossly normal and well kempt Mental Status: mental status grossly normal Speech and movement: Normal speech and movement present and Clear speech present Affect: normal affect Attitude: cooperative Thought process: Normal thought process present Thought content: Normal thought content present Insight: Fair insight present (Psych) Judgement: Fair judgement present (Psych) Assessment & Plan Assessment & Plan (1) Gross hematuria: Code(s): R31.0 - Gross hematuria Category: Medical Plan In office urinalysis results reviewed with the patient today; as noted above; will send for urine cytology. PVR 19 mL He currently denies any bothersome urinary issues or concerns. He reports be happy with current voiding parameters. We discussed the importance of limiting/quitting nicotine dependence for overall health and well-being. Will continue with surveillance monitoring. We did discussed potential causes of gross hematuria as well as microscopic hematuria; we discussed further treatment options and risks and benefits of these treatment options. Follow-up in 6 months; or sooner with any issues, concerns, and or questions. Orders: Orders Urine Cytology Today R31.0 - Gross hematuria Patient Instructions: The patient had an opportunity to ask questions regarding the treatment plan. All questions were answered. Physical exam, labs, and imaging were discussed and reviewed in detail. As well as risks, benefits, and discussion of treatment choices. No major barriers to understanding were identified. The patient expressed understanding and agreement with the above treatment plan. The patient was made aware they should contact our office by phone for worsening of their current condition, the appearance of new symptoms, or with any questions or concerns. Compliance is encouraged with any medications and follow up testing that is ordered. It is a privilege to be allowed the opportunity to participate in? your urological care.? Again, if you have any questions or concerns If you have any questions or concerns please do not hesitate to contact me. The office is [phone]. This note is constructed using voice recognition software. While every effort has been made to ensure accuracy wafer polishing lead worker errors may have been included. Yours sincerely, BRYON Garnett Coding Level of Care Code Est Pt Level 3 (45893) Diagnoses Gross hematuria R31.0
== END 2025-05-08 12:00 | disposition home or self-care (01) ==
LOC: HO.HUSH 11:25
PROVIDERS: Visit Provider Nurse Practitioner Family
DX: R31.0 Gross hematuria (principal); Z13.9 Encounter for screening, unspecified
CPT/HCPCS: 99213

== ENCOUNTER 2025-05-08 11:25 | Outpatient (REF) | payer MEDICAID, SELFPAY | END 2025-05-08 11:26 | disposition home or self-care (01) | LOC: HO.LAB 11:25 | PROVIDERS: Visit Provider Nurse Practitioner Family | DX: R31.0 Gross hematuria (principal) | CPT/HCPCS: 51798; 81003; 88112; 99212 ==